=== PATIENT | female | born 1965 | race Caucasian/White ===

== ENCOUNTER 2018-06-07 17:16 | Inpatient (IN) | payer BC, OTHER ==
[~2018-06-07] VITALS: Ht 165.1 cm; Wt 83.2 kg
[2018-06-07] MEDS ORDERED: acetaminophen 325mg tablet PO STA (17:29)
[2018-06-07] MEDS ORDERED: normal saline 1000ML IV soln IV ONE (17:30)
[2018-06-07 18:11] LABS: BASOPHILS % (AUTO) 0.3 % (0-1); EOSINOPHILS # (AUTO) 0.2 X10'3 (0-0.9); EOSINOPHILS % (AUTO) 2.7 % (0-6); HEMATOCRIT 42.3 % (35.0-45.0); HEMOGLOBIN 14.7 g/dl (12.0-16.0); LYMPHOCYTES # (AUTO) 1.1 X10'3 (1.1-4.8); LYMPHOCYTES % (AUTO) 15.6 % (21-51); MEAN CORPUSCULAR HEMOGLOBIN 31.8 PG (27.0-31.0); MEAN CORPUSCULAR HGB CONC 34.6 % (33.0-36.5); MEAN CORPUSCULAR VOLUME 91.8 FL (78-98); MEAN PLATELET VOLUME 8.5 FL (7.4-10.4); MONOCYTES # (AUTO) 0.6 X10'3 (0-0.9); MONOCYTES % (AUTO) 7.6 % (2-12); NEUTROPHILS # (AUTO) 5.4 X10'3 (1.8-7.7); NEUTROPHILS % (AUTO) 73.8 % (42-75); PLATELET COUNT 258 X10'3 (140-440); RED BLOOD COUNT 4.61 X10'6 (4.20-5.60); RED CELL DISTRIBUTION WIDTH 13.2 % (11.5-14.5); WHITE BLOOD COUNT 7.3 X10'3 (4.5-11.0)
[2018-06-07] MEDS ORDERED: ipratropium/albuterol 3ml nebule NEB ONE (18:15)
[2018-06-07] MEDS ORDERED: LORazepam 2 mg/ml vial IV ONE ×3 (18:15→20:30)
[2018-06-07] MEDS ORDERED: albuterol 2.5 MG/3 ML nebule NEB ONE ×3 (18:15→20:05)
[2018-06-07] MEDS ORDERED: methylPREDNISolone sod succ 125mg/2ml vial IV ONE (18:15)
[2018-06-07 18:25] LABS: ALANINE AMINOTRANSFERASE 45 U/L (12-78); ALBUMIN 3.7 G/DL (3.4-5.0); ALKALINE PHOSPHATASE 87 IU/L (46-116); ANION GAP 13 (8-16); ASPARTATE AMINO TRANSFERASE 30 U/L (10-37); BILIRUBIN,TOTAL 0.5 MG/DL (0.1-1.0); BLOOD UREA NITROGEN 7 MG/DL (7-18); BUN/CREATININE RATIO 7.9 (6.6-38.0); CALCIUM 8.6 MG/DL (8.5-10.1); CHLORIDE 99 MMOL/L (99-107); CREATININE 0.89 MG/DL (0.40-0.90); GLUCOSE 99 MG/DL (70-104); POTASSIUM 3.3 MMOL/L (3.5-5.1); SODIUM 135 MMOL/L (135-145); TOTAL CARBON DIOXIDE 23.1 MMOL/L (24-32); TOTAL PROTEIN 7.5 G/DL (6.4-8.2); eGFR 66 ML/MIN
--- NOTE | 2018-06-07 18:27 | NUR ---
PT UP TO THE BR FOR UA AND EXTRA WARMED BLANKETS GIVEN TO THE PT.
[2018-06-07 18:46] LABS: CLARITY,URINE CLEAR (Clear); COLOR,URINE STRAW (Yellow); GLUCOSE, URINE NEGATIVE (Neg); KETONES,URINE NEGATIVE (Neg); LEUKOCYTE ESTERASE ,URINE NEGATIVE (Neg); NITRITES, URINE NEGATIVE (Neg); OCCULT BLOOD,URINE NEGATIVE (Neg); PH,URINE 6.5 (4.8-8.0); PROTEIN,URINE NEGATIVE (Neg); UROBILINOGEN,URINE 0.2 E.U/dL (0.2-1.0)
[2018-06-07 18:48] LABS: UA COLLECTION TYPE CLN CATCH MIDSTREAM
[2018-06-07] MEDS ORDERED: ipratropium 0.5 MG/2.5ML nebule IH ONE (19:35)
[2018-06-07] MEDS ORDERED: albuterol 2.5 mg/0.5ml nebule NEB ONE (19:35)
--- NOTE | 2018-06-07 19:42 | NUR ---
DRINKS 12-18 BEERS A DAY OR 3 BOTTLES OF WINE A DAY NO ALCOHOL SINCE 06-03-18
[2018-06-07] MEDS ORDERED: ipratropium/albuterol 3ml nebule IH ONE (20:05)
[2018-06-07] MEDS ORDERED: chlordiazePOXIDE 25mg capsule PO ONE (20:15)
[2018-06-07] MEDS ORDERED: magnesium 2GM in 50ml NS 50 ML IV ONE (20:30)
[2018-06-07] MEDS ORDERED: levalbuterol 1.25mg/0.5ml nebule IH ONE (20:40)
--- NOTE | 2018-06-07 20:55 | NUR ---
FAMILY AT THE BS. RT WITH PT
--- NOTE | 2018-06-07 20:55 | NUR ---
PT FALLING ASLEEP THROUGH HER NEB TREATMENT. HOLDING ATIVAN
--- NOTE | 2018-06-07 21:18 | NUR ---
pts family informed er md that pt had wet the bed. this rn went into pts room with a bedside commode, assisted her to commode, and changed/cleaned her bed. pt assisted back to bed, head of bed raised, and pt had no other requests at this time
[2018-06-07 21:35] LABS: URINE AMPHETAMINE SCREEN NEGATIVE (Neg); URINE BARBITUATE SCREEN NEGATIVE (Neg); URINE BENZODIAZEPINES SCREEN NEGATIVE (Neg); URINE CANNABINOID SCREEN NEGATIVE (Neg); URINE COCAINE SCREEN NEGATIVE (Neg); URINE METHADONE SCREEN NEGATIVE (Neg); URINE OPIATE SCREEN NEGATIVE (Neg); URINE PHENCYCLIDINE SCREEN NEGATIVE (Neg)
[2018-06-07 21:38] LABS: ETHANOL < 0.010 GM/DL (0.0-0.010)
[2018-06-07] MEDS ORDERED: thiamine inj. 100 MG in normal saline 100ml IV soln 100 ML IV ONE (22:15)
[2018-06-07] MEDS ORDERED: haloperidol lactate 5mg/ml inj IM PRN (22:15)
[2018-06-07] MEDS ORDERED: magnesium hydroxide 30ml (MOM) UD suspension PO PRN (22:15)
[2018-06-07] MEDS ORDERED: albuterol 2.5 MG/3 ML nebule NEB PRN (22:15)
[2018-06-07] MEDS ORDERED: haloperidol 5mg tablet PO PRN (22:15)
[2018-06-07] MEDS ORDERED: ondansetron/PF 4mg/2ml inj IV PRN (22:15)
[2018-06-07] MEDS ORDERED: potassium Cl 20 mEq SR tablet PO PRN ×2 (22:15)
[2018-06-07] MEDS ORDERED: mag hydrox/Alum hydrox/simeth 30ml oral suspension PO PRN (22:15)
[2018-06-07] MEDS ORDERED: acetaminophen 325mg tablet PO PRN (22:15)
[2018-06-07] MEDS ORDERED: potassium Cl 40MEQ/NS 500ml 500 ML IV PRN ×2 (22:15)
--- NOTE | 2018-06-07 22:18 | NUR ---
PT IS ASLEEP. SNORING RR, HOB IS ELEVATED TO 75 DEGREES. SON IN ROOM. HE CALLED ME IN TO STATE "SHE IS GOING TO BE MOVED TO ANOTHER ROOM, SHE IS STAYING. I DON'T MEAN TO COMPLAIN, BUT NO ONE HAS GIVEN HER WATER, AND I HAVE BEEN ON THE PHONE A SOLID HOUR AND NO ONE HAS CHECKED ON HER IN THIS TIME. MY GRANDMOTHER TELLS ME NOT TO LEAVE BECAUSE PEOPLE ALL THE TIME IN THE HOSPITAL. SO I WANT TO STAY THE NIGHT."
--- NOTE | 2018-06-07 23:05 | NUR ---
Received report from CINTHYA Wagner. Awaiting patient arrival to the floor.
--- NOTE | 2018-06-07 23:15 | NUR ---
Patient arrived to the floor via gurney. Placed in room 355B. Patient is very sleepy, but alert and oriented of room air. In no apparent distress. Call light and items of frequent use within reach. Will continue to monitor.
[2018-06-07 23:20] VITALS: BP 140/68
[2018-06-07] MEDS: normal saline 1000ml 1,000 ML IV SCH (23:28)
--- NOTE | 2018-06-07 23:45 | NUR ---
Attempted to DART patient; patient verbalized "I'm very sleepy and tired. Can I just get some sleep now?" Assured patient that she is free to rest. Will attempt again later.
--- NOTE | 2018-06-08 04:30 | NUR ---
DART is partially complete. Patient kept falling asleep in between, could not finish sentences or answering questions. Patient again said she'd like to sleep.
[2018-06-08 05:17] LABS: BASOPHILS % (AUTO) 0.2 % (0-1); EOSINOPHILS # (AUTO) 0.1 X10'3 (0-0.9); HEMATOCRIT 38.6 % (35.0-45.0); HEMOGLOBIN 13.3 g/dl (12.0-16.0); LYMPHOCYTES # (AUTO) 0.5 X10'3 (1.1-4.8); LYMPHOCYTES % (AUTO) 7.9 % (21-51); MEAN CORPUSCULAR HEMOGLOBIN 31.8 PG (27.0-31.0); MEAN CORPUSCULAR HGB CONC 34.4 % (33.0-36.5); MEAN CORPUSCULAR VOLUME 92.5 FL (78-98); MEAN PLATELET VOLUME 8.8 FL (7.4-10.4); MONOCYTES # (AUTO) 0.1 X10'3 (0-0.9); MONOCYTES % (AUTO) 1.6 % (2-12); NEUTROPHILS # (AUTO) 5.6 X10'3 (1.8-7.7); NEUTROPHILS % (AUTO) 89.3 % (42-75); PLATELET COUNT 235 X10'3 (140-440); RED BLOOD COUNT 4.17 X10'6 (4.20-5.60); RED CELL DISTRIBUTION WIDTH 13.4 % (11.5-14.5); WHITE BLOOD COUNT 6.3 X10'3 (4.5-11.0)
[2018-06-08 05:38] LABS: ALBUMIN 3.1 G/DL (3.4-5.0); ANION GAP 9 (8-16); BLOOD UREA NITROGEN 7 MG/DL (7-18); BUN/CREATININE RATIO 9.5 (6.6-38.0); CHLORIDE 109 MMOL/L (99-107); CREATININE 0.74 MG/DL (0.40-0.90); GLUCOSE 156 MG/DL (70-104); POTASSIUM 3.9 MMOL/L (3.5-5.1); SODIUM 141 MMOL/L (135-145); TOTAL CARBON DIOXIDE 23.2 MMOL/L (24-32); eGFR 82 ML/MIN
--- NOTE | 2018-06-08 06:31 | NUR ---
Problems reprioritized. Patient report given, questions answered & plan of care reviewed with CINTHYA Hyatt.
--- NOTE | 2018-06-08 06:56 | NUR ---
Patient in room [facility] 355. I have received report from CINTHYA SOTO and had the opportunity to ask questions and assume patient care.
[2018-06-08 07:33] VITALS: BP 122/77
[2018-06-08] MEDS: K and/or MAG REPLACEMENT MC SCH (08:00)
[2018-06-08] MEDS ORDERED: NO HOME MEDS (08:17)
[2018-06-08] MEDS: acetaminophen 325mg tablet PO PRN (08:22)
[2018-06-08] MEDS: thiamine 100mg tablet PO SCH (08:22)
[2018-06-08] MEDS: enoxaparin 40mg/0.4ml syringe SUBCUT SCH (08:24)
[2018-06-08] MEDS: normal saline 1000ml 1,000 ML IV SCH ×2 (08:24→18:13)
[2018-06-08] MEDS ORDERED: predniSONE 20 mg tablet PO SCH (08:30)
[2018-06-08] MEDS: piperacillin/tazo 3.375gm/50ml 50 ML IV SCH ×3 (11:26→23:51)
[2018-06-08] MEDS: LORazepam 2 mg/ml vial IV PRN ×2 (14:55→16:50)
[2018-06-08] MEDS: ipratropium/albuterol 3ml nebule NEB SCH ×3 (15:06→20:29)
--- NOTE | 2018-06-08 18:18 | NUR ---
Received report from CINTHYA Hyatt. Patient is awake and alert on room air, in no apparent distress. Sitting up in bed having meal. Visitors at bedside. Call light and items of frequent use within reach. Will continue to monitor.
--- NOTE | 2018-06-08 18:31 | NUR ---
Problems reprioritized. Patient report given, questions answered & plan of care reviewed with CINTHYA SOTO.
[2018-06-08 20:00] VITALS: BP 136/70
[2018-06-08] MEDS: methylPREDNISolone sod succ 125mg/2ml vial IV SCH (23:50)
[2018-06-09] VITALS: BP 110/64
[2018-06-09] MEDS: normal saline 1000ml 1,000 ML IV SCH ×3 (01:29→23:51)
[2018-06-09] MEDS: LORazepam 2 mg/ml vial IV PRN ×6 (02:49→23:50)
[2018-06-09 06:07] LABS: BASOPHILS % (AUTO) 0.1 % (0-1); EOSINOPHILS # (AUTO) 0.1 X10'3 (0-0.9); HEMATOCRIT 38.3 % (35.0-45.0); LYMPHOCYTES # (AUTO) 0.9 X10'3 (1.1-4.8); LYMPHOCYTES % (AUTO) 7.7 % (21-51); MEAN CORPUSCULAR HEMOGLOBIN 31.7 PG (27.0-31.0); MEAN CORPUSCULAR VOLUME 93.2 FL (78-98); MEAN PLATELET VOLUME 8.8 FL (7.4-10.4); MONOCYTES # (AUTO) 0.2 X10'3 (0-0.9); MONOCYTES % (AUTO) 1.7 % (2-12); NEUTROPHILS # (AUTO) 10.1 X10'3 (1.8-7.7); NEUTROPHILS % (AUTO) 89.5 % (42-75); PLATELET COUNT 264 X10'3 (140-440); RED BLOOD COUNT 4.11 X10'6 (4.20-5.60); RED CELL DISTRIBUTION WIDTH 13.6 % (11.5-14.5); WHITE BLOOD COUNT 11.3 X10'3 (4.5-11.0)
[2018-06-09 06:10] LABS: ALBUMIN 3.1 G/DL (3.4-5.0); ANION GAP 11 (8-16); BLOOD UREA NITROGEN 11 MG/DL (7-18); BUN/CREATININE RATIO 13.4 (6.6-38.0); CALCIUM 8.5 MG/DL (8.5-10.1); CHLORIDE 107 MMOL/L (99-107); CREATININE 0.82 MG/DL (0.40-0.90); GLUCOSE 172 MG/DL (70-104); POTASSIUM 4.5 MMOL/L (3.5-5.1); SODIUM 140 MMOL/L (135-145); TOTAL CARBON DIOXIDE 22.5 MMOL/L (24-32); eGFR 73 ML/MIN
--- NOTE | 2018-06-09 06:10 | NUR ---
Problems reprioritized. Patient report given, questions answered & plan of care reviewed with CINTHYA Hyatt. Patient resting comfortably.
--- NOTE | 2018-06-09 06:19 | NUR ---
Patient in room [facility] 355. I have received report from CINTHYA SOTO and had the opportunity to ask questions and assume patient care.
[2018-06-09 07:00] VITALS: BP 123/79
[2018-06-09] MEDS: thiamine 100mg tablet PO SCH (07:21)
[2018-06-09] MEDS: methylPREDNISolone sod succ 125mg/2ml vial IV SCH ×4 (07:21→23:49)
[2018-06-09] MEDS: piperacillin/tazo 3.375gm/50ml 50 ML IV SCH ×3 (07:21→23:49)
[2018-06-09] MEDS: enoxaparin 40mg/0.4ml syringe SUBCUT SCH (07:23)
[2018-06-09] MEDS: K and/or MAG REPLACEMENT MC SCH (08:00)
[2018-06-09] MEDS: ipratropium/albuterol 3ml nebule NEB SCH ×3 (09:00→22:13)
[2018-06-09] MEDS: nicotine 21mg patch - 24 hr TD SCH (09:19)
[2018-06-09] MEDS: acetaminophen 325mg tablet PO PRN ×2 (09:24→17:25)
[2018-06-09 12:00] VITALS: BP 124/66
--- NOTE | 2018-06-09 16:27 | NUR ---
SS consulted w/hospitalist-Dr. Tyler re pt's need for psych medication eval due to presence of depressive symptoms. Per consultation, doctor in agreement that an eval would be helpful in determining if antidepressant treatment is warranted. SS contacted [facility] and requested for a psych consult on pt's behalf, per discussion w/[facility], they will ask one of their physician to stop by either this evening or tomorrow morning to see pt. RN & hospitalist informed.
[2018-06-09 18:00] VITALS: BP 137/75
--- NOTE | 2018-06-09 18:19 | NUR ---
Problems reprioritized. Patient report given, questions answered & plan of care reviewed with CINTHYA PHELPS. Addendum: 06/09/18 at 1847 by Olena Nance RN Problems reprioritized. Patient report given, questions answered & plan of care reviewed with CINTHYA Mendiola.
--- NOTE | 2018-06-09 18:47 | NUR ---
Patient in room [facility] 355. I have received report from Olena MENDES and had the opportunity to ask questions and assume patient care.
[2018-06-09] MEDS ORDERED: benzocaine/menthol oral lozeng 1 EACH BOX MM PRN (19:35)
[2018-06-09 21:00] VITALS: BP 141/80
[2018-06-09] MEDS: prazosin 1mg capsule PO SCH (21:23)
[2018-06-09] MEDS ORDERED: LORazepam 1 MG tablet PO PRN (22:15)
[2018-06-09] MEDS: benzonatate 100mg capsule PO SCH ×2 (23:50→23:58)
[2018-06-10] VITALS: BP 111/72
[2018-06-10 05:18] LABS: BASOPHILS % (AUTO) 0 % (0-1); EOSINOPHILS # (AUTO) 0.3 X10'3 (0-0.9); EOSINOPHILS % (AUTO) 2.2 % (0-6); HEMATOCRIT 39.4 % (35.0-45.0); HEMOGLOBIN 13.4 g/dl (12.0-16.0); LYMPHOCYTES % (AUTO) 6.6 % (21-51); MEAN CORPUSCULAR HEMOGLOBIN 31.8 PG (27.0-31.0); MEAN CORPUSCULAR VOLUME 93.6 FL (78-98); MONOCYTES # (AUTO) 0.3 X10'3 (0-0.9); MONOCYTES % (AUTO) 2.2 % (2-12); NEUTROPHILS # (AUTO) 13.1 X10'3 (1.8-7.7); PLATELET COUNT 287 X10'3 (140-440); RED BLOOD COUNT 4.21 X10'6 (4.20-5.60); RED CELL DISTRIBUTION WIDTH 13.6 % (11.5-14.5); WHITE BLOOD COUNT 14.8 X10'3 (4.5-11.0)
[2018-06-10] MEDS: acetaminophen 325mg tablet PO PRN ×3 (05:22→20:38)
[2018-06-10] MEDS: LORazepam 2 mg/ml vial IV PRN ×4 (05:23→20:37)
[2018-06-10 05:27] LABS: ALBUMIN 3.2 G/DL (3.4-5.0); ANION GAP 10 (8-16); BLOOD UREA NITROGEN 11 MG/DL (7-18); BUN/CREATININE RATIO 12.8 (6.6-38.0); CALCIUM 8.9 MG/DL (8.5-10.1); CHLORIDE 107 MMOL/L (99-107); CREATININE 0.86 MG/DL (0.40-0.90); GLUCOSE 155 MG/DL (70-104); POTASSIUM 4.3 MMOL/L (3.5-5.1); SODIUM 142 MMOL/L (135-145); TOTAL CARBON DIOXIDE 25.4 MMOL/L (24-32); eGFR 69 ML/MIN
--- NOTE | 2018-06-10 06:27 | NUR ---
Patient in room [facility] 355. I have received report from CINTHYA Baeza and had the opportunity to ask questions and assume patient care.
--- NOTE | 2018-06-10 06:29 | NUR ---
Problems reprioritized. Patient report given, questions answered & plan of care reviewed with Ana MENDES.
[2018-06-10 07:17] VITALS: BP 100/62
[2018-06-10] MEDS: ipratropium/albuterol 3ml nebule NEB SCH ×3 (07:41→21:05)
[2018-06-10] MEDS: K and/or MAG REPLACEMENT MC SCH (08:00)
[2018-06-10] MEDS: piperacillin/tazo 3.375gm/50ml 50 ML IV SCH ×2 (08:02→16:16)
[2018-06-10] MEDS: nicotine 21mg patch - 24 hr TD SCH ×2 (08:02→13:34)
[2018-06-10] MEDS: thiamine 100mg tablet PO SCH (08:02)
[2018-06-10] MEDS: benzonatate 100mg capsule PO SCH ×2 (08:02→16:16)
[2018-06-10] MEDS: enoxaparin 40mg/0.4ml syringe SUBCUT SCH (08:03)
[2018-06-10] MEDS: methylPREDNISolone sod succ 125mg/2ml vial IV SCH ×2 (08:03→16:16)
[2018-06-10] MEDS: normal saline 1000ml 1,000 ML IV SCH ×2 (10:13→20:37)
[2018-06-10 11:33] VITALS: BP 109/53
[2018-06-10] MEDS ORDERED: BENZ-16 PO (15:05)
[2018-06-10] MEDS ORDERED: NICO-687 TD (15:05)
[2018-06-10] MEDS ORDERED: thiamine tablet PO (15:05)
[2018-06-10] MEDS ORDERED: FOLI1TAB16 PO (15:05)
[2018-06-10] MEDS ORDERED: PRAZ1CAP5 PO (15:05)
[2018-06-10] MEDS ORDERED: AMOX-419 PO (15:05)
[2018-06-10] MEDS ORDERED: BUDE10.22 INH (15:05)
[2018-06-10] MEDS ORDERED: PRED20TA PO (15:05)
[2018-06-10] MEDS ORDERED: BENZ1LOZ30 MM (15:05)
[2018-06-10] MEDS ORDERED: ALBU8.5H8 IH (15:05)
[2018-06-10] MEDS ORDERED: DULO20CA50 PO (15:11)
[2018-06-10] MEDS ORDERED: HYDR-3686 PO (15:11)
[2018-06-10 19:00] VITALS: BP 112/61
--- NOTE | 2018-06-10 19:04 | NUR ---
Problems reprioritized. Patient report given, questions answered & plan of care reviewed with CINTHYA Mcmillan.
[2018-06-10] MEDS: prazosin 1mg capsule PO SCH (20:42)
[2018-06-11] VITALS: BP 118/70
[2018-06-11] MEDS: piperacillin/tazo 3.375gm/50ml 50 ML IV SCH ×2 (00:14→09:12)
[2018-06-11] MEDS: methylPREDNISolone sod succ 125mg/2ml vial IV SCH ×2 (00:14→09:13)
[2018-06-11] MEDS: benzonatate 100mg capsule PO SCH ×2 (00:14→09:12)
[2018-06-11] MEDS: LORazepam 2 mg/ml vial IV PRN ×2 (00:19→05:20)
[2018-06-11 06:06] LABS: BASOPHILS % (AUTO) 0 % (0-1); EOSINOPHILS # (AUTO) 0.3 X10'3 (0-0.9); EOSINOPHILS % (AUTO) 2.2 % (0-6); HEMATOCRIT 38.3 % (35.0-45.0); LYMPHOCYTES % (AUTO) 7.1 % (21-51); MEAN CORPUSCULAR HEMOGLOBIN 31.6 PG (27.0-31.0); MEAN CORPUSCULAR HGB CONC 33.9 % (33.0-36.5); MEAN CORPUSCULAR VOLUME 93.1 FL (78-98); MONOCYTES # (AUTO) 0.4 X10'3 (0-0.9); NEUTROPHILS # (AUTO) 12.5 X10'3 (1.8-7.7); NEUTROPHILS % (AUTO) 87.7 % (42-75); PLATELET COUNT 294 X10'3 (140-440); RED BLOOD COUNT 4.11 X10'6 (4.20-5.60); RED CELL DISTRIBUTION WIDTH 13.5 % (11.5-14.5); WHITE BLOOD COUNT 14.3 X10'3 (4.5-11.0)
[2018-06-11] MEDS: normal saline 1000ml 1,000 ML IV SCH (06:13)
--- NOTE | 2018-06-11 06:21 | NUR ---
Patient in room [facility] 355. I have received report from CINTHYA Mcmillan and had the opportunity to ask questions and assume patient care.
[2018-06-11 06:33] LABS: ALBUMIN 3.1 G/DL (3.4-5.0); ANION GAP 9 (8-16); BLOOD UREA NITROGEN 15 MG/DL (7-18); BUN/CREATININE RATIO 16.9 (6.6-38.0); CALCIUM 8.9 MG/DL (8.5-10.1); CHLORIDE 105 MMOL/L (99-107); CREATININE 0.89 MG/DL (0.40-0.90); GLUCOSE 164 MG/DL (70-104); POTASSIUM 4.4 MMOL/L (3.5-5.1); SODIUM 138 MMOL/L (135-145); TOTAL CARBON DIOXIDE 23.6 MMOL/L (24-32); eGFR 66 ML/MIN
[2018-06-11 07:27] VITALS: BP 148/92
[2018-06-11] MEDS: K and/or MAG REPLACEMENT MC SCH (08:00)
[2018-06-11] MEDS: ipratropium/albuterol 3ml nebule NEB SCH (08:38)
[2018-06-11] MEDS: thiamine 100mg tablet PO SCH (09:12)
[2018-06-11] MEDS: enoxaparin 40mg/0.4ml syringe SUBCUT SCH (09:13)
[2018-06-11] MEDS: acetaminophen 325mg tablet PO PRN (09:13)
[2018-06-11] MEDS: nicotine 21mg patch - 24 hr TD SCH (09:14)
--- NOTE | 2018-06-11 10:01 | NUR ---
Initial: Pt admitted with possible PNA and COPD exacerbation. Per MD progress notes PNA much improved and COPD exacerbation slowly resolving. Pt with hx of Etoh abuse however recently quid per H&P, pt receiving Thiamine. Pt on a regular diet with documented PO intake 100% meeting nutrient needs. LBM 06/07, pt with MoM PRN last given 06/10. Will continue to follow. Recommendations: 1) Continue with regular diet 2) Continue with Thiamine given hx etoh abuse 3) Monitor need for additional bowel care 4) Wt per rx Addendum: 06/11/18 at [address] Amended: Links added.
[2018-06-11 11:47] VITALS: BP 95/49
--- NOTE | 2018-06-11 14:07 | NUR ---
Pt discharged to home with all belongings in private vehicle, accompanied by son. Discharge instructions reviewed, medications reviewed, delivered by [facility]. IV DC'd, cannula intact. Pt instructed to follow up with PCP and get a referral for psychiatrist. Pt escorted to front lobby via wheelchair by PCT.
[2018-06-11] MEDS ORDERED: LORazepam 1 MG tablet PO PRN (22:15)
[2018-06-11] MEDS ORDERED: LORazepam 2 mg/ml vial IV PRN (22:15)
== END 2018-06-11 14:07 | disposition home health service (06) | DRG 178 ==
LOC: ER 17:17 → ED HOLD 22:13 → SUR 3N 23:15
PROVIDERS: ADMIT Hospitalist; ATTEND Family Medicine
DX: J69.0 Pneumonitis due to inhalation of food and vomit (principal); J45.901 Unspecified asthma with (acute) exacerbation; J44.1 Chronic obstructive pulmonary disease with (acute) exacerbation; F10.239 Alcohol dependence with withdrawal, unspecified; R45.851 Suicidal ideations; F33.2 Major depressive disorder, recurrent severe without psychotic features; F43.10 Post-traumatic stress disorder, unspecified; E66.9 Obesity, unspecified; E87.6 Hypokalemia; Z60.2 Problems related to living alone; F17.209 Nicotine dependence, unspecified, with unspecified nicotine-induced disorders; I10 Essential (primary) hypertension; J06.9 Acute upper respiratory infection, unspecified; A08.4 Viral intestinal infection, unspecified; R49.0 Dysphonia; Z79.899 Other long term (current) drug therapy; Z88.6 Allergy status to analgesic agent; Z68.30 Body mass index [BMI] 30.0-30.9, adult; Z71.6 Tobacco abuse counseling; Z85.07 Personal history of malignant neoplasm of pancreas; Z97.0 Presence of artificial eye; Z90.49 Acquired absence of other specified parts of digestive tract; Z98.51 Tubal ligation status
CPT/HCPCS: 36415; 71045; 80048; 80053; 80305; 80320; 81003; 83605; 83735; 84145; 85025; 87040; 87070; 87502; 87503; 93005; 94640; 94760; 97110; 97116; 97161; 97530; G0378; J1650; J2060; J2405; J2543; J2930; J3411; J3475; J7030; J7512; J7611; J7614

== ENCOUNTER 2020-01-25 12:58 | Emergency (ER) | payer BC, MEDICAID ==
[~2020-01-25] VITALS: Ht 162.6 cm; Wt 83.0 kg
[~2020-01-25 12:58] MED LIST: ALBU8.5H8 IH; BENZ-16 PO; BENZ1LOZ30 MM; BUDE10.22 INH; DULO20CA50 PO; FOLI1TAB16 PO; NICO-687 TD; PRAZ1CAP5 PO; thiamine tablet PO
[2020-01-25 14:33] LABS: BASOPHILS % (AUTO) 0.3 % (0-1); EOSINOPHILS # (AUTO) 0.7 X10'3 (0-0.9); HEMATOCRIT 47.9 % (35.0-45.0); HEMOGLOBIN 16.3 g/dl (12.0-16.0); LYMPHOCYTES # (AUTO) 2.7 X10'3 (1.1-4.8); LYMPHOCYTES % (AUTO) 26.3 % (21-51); MEAN CORPUSCULAR HEMOGLOBIN 31.6 PG (27.0-31.0); MEAN PLATELET VOLUME 8.8 FL (7.4-10.4); MONOCYTES # (AUTO) 0.6 X10'3 (0-0.9); MONOCYTES % (AUTO) 5.7 % (2-12); NEUTROPHILS # (AUTO) 6.2 X10'3 (1.8-7.7); NEUTROPHILS % (AUTO) 60.7 % (42-75); PLATELET COUNT 343 X10'3 (140-440); RED BLOOD COUNT 5.15 X10'6 (4.20-5.60); RED CELL DISTRIBUTION WIDTH 12.2 % (11.5-14.5); WHITE BLOOD COUNT 10.2 X10'3 (4.5-11.0)
[2020-01-25] MEDS ORDERED: iohexol 300mg/ml 100ml inj. ONE (14:40)
[2020-01-25 14:45] LABS: ALBUMIN 4.1 G/DL (3.4-5.0); ANION GAP 8 (8-16); BLOOD UREA NITROGEN 7 MG/DL (7-18); BUN/CREATININE RATIO 8.2 (6.6-38.0); CALCIUM 9.8 MG/DL (8.5-10.1); CHLORIDE 104 MMOL/L (99-107); CREATININE 0.85 MG/DL (0.40-0.90); GLUCOSE 91 MG/DL (70-104); POTASSIUM 3.7 MMOL/L (3.5-5.1); SODIUM 139 MMOL/L (135-145); TOTAL CARBON DIOXIDE 26.7 MMOL/L (24-32); eGFR 69 ML/MIN
[2020-01-25] MEDS ORDERED: amox tr/potassium clavulanate 875/125mg TAB PO ONE (15:40)
[2020-01-25] MEDS ORDERED: AMOX-422 PO (16:09)
[2020-01-25] MEDS ORDERED: ERYT1OIN6 LEFTEYE (16:09)
[2020-01-25 16:25] VITALS: BP 137/85
== END 2020-01-25 16:30 | disposition home or self-care (01) ==
LOC: ER 13:00
DX: H00.034 Abscess of left upper eyelid (principal); I10 Essential (primary) hypertension; Z90.49 Acquired absence of other specified parts of digestive tract; Z98.51 Tubal ligation status; Z72.89 Other problems related to lifestyle; Z60.2 Problems related to living alone; Z88.5 Allergy status to narcotic agent; Z88.8 Allergy status to other drugs, medicaments and biological substances; Z79.899 Other long term (current) drug therapy
CPT/HCPCS: 36415; 70482; 80048; 85025; 99285; Q9967

== ENCOUNTER → 2020-10-11 | Outpatient (CLI) | payer MEDICAID | END | disposition home or self-care (01) | LOC: RT 10:25 | PROVIDERS: ATTEND Family Medicine | DX: J44.9 Chronic obstructive pulmonary disease, unspecified (principal) | CPT/HCPCS: 94010 ==

== ENCOUNTER 2020-11-03 14:29 | Emergency (ER) | payer MEDICAID ==
[~2020-11-03] VITALS: Ht 167.6 cm; Wt 86.4 kg
[2020-11-03] MEDS ORDERED: morphine 4 MG/ML inj SYRINge IV ONE (14:50)
[2020-11-03] MEDS ORDERED: normal saline 1000ml 1,000 ML IV ONE (14:50)
--- NOTE | 2020-11-03 14:52 | NUR ---
LABS,[id number]
[2020-11-03 15:02] LABS: BASOPHILS # (AUTO) 0.1 X10'3 (0-0.2); BASOPHILS % (AUTO) 0.6 % (0-1); EOSINOPHILS # (AUTO) 0.1 X10'3 (0-0.9); EOSINOPHILS % (AUTO) 1.1 % (0-6); HEMATOCRIT 36.3 % (35.0-45.0); LYMPHOCYTES # (AUTO) 2.7 X10'3 (1.1-4.8); LYMPHOCYTES % (AUTO) 19.8 % (21-51); MEAN CORPUSCULAR HEMOGLOBIN 29.6 PG (27.0-31.0); MEAN CORPUSCULAR HGB CONC 33.2 g/dL (33.0-36.5); MEAN CORPUSCULAR VOLUME 89.3 FL (78-98); MEAN PLATELET VOLUME 8.4 FL (7.4-10.4); MONOCYTES # (AUTO) 0.8 X10'3 (0-0.9); MONOCYTES % (AUTO) 5.6 % (2-12); NEUTROPHILS % (AUTO) 72.9 % (42-75); PLATELET COUNT 243 X10'3 (140-440); RED BLOOD COUNT 4.06 X10'6 (4.20-5.60); RED CELL DISTRIBUTION WIDTH 14.4 % (11.5-14.5); WHITE BLOOD COUNT 13.7 X10'3 (4.5-11.0)
[2020-11-03] MEDS ORDERED: fentaNYL/PF 50MCG/1 ML 2ML syringe IV ONE (15:05)
[2020-11-03] MEDS: HYDROcodone/acetaminophen 5mg/325mg tablet PO ONE ×2 (15:14→16:31)
[2020-11-03 15:18] LABS: ALANINE AMINOTRANSFERASE 58 U/L (12-78); ALBUMIN 2.7 G/DL (3.4-5.0); ALBUMIN/GLOBULIN RATIO 0.9 (1.1-1.5); ALKALINE PHOSPHATASE 75 IU/L (46-116); ANION GAP 8 (8-16); ASPARTATE AMINO TRANSFERASE 66 U/L (10-37); BILIRUBIN,TOTAL 0.3 MG/DL (0.1-1.0); BLOOD UREA NITROGEN 12 MG/DL (7-18); BUN/CREATININE RATIO 14.1 (6.6-38.0); CALCIUM 7.5 MG/DL (8.5-10.1); CHLORIDE 105 MMOL/L (99-107); CREATININE 0.85 MG/DL (0.40-0.90); GLUCOSE 110 MG/DL (70-104); POTASSIUM 3.2 MMOL/L (3.5-5.1); SODIUM 136 MMOL/L (135-145); TOTAL PROTEIN 5.8 G/DL (6.4-8.2); TROPONIN I < 0.04 NG/ML (0.0-0.05); eGFR 69 ML/MIN
[2020-11-03] MEDS ORDERED: potassium Cl 20 mEq SR tablet PO STA (15:39)
[2020-11-03] MEDS ORDERED: POTASSIUM BICARB 20meq eff tab 20 MEQ TABLET.EFF PO STA (15:42)
[2020-11-03 15:55] LABS: MAGNESIUM 1.8 MG/DL (1.5-2.4)
[2020-11-03] MEDS ORDERED: ondansetron/PF 4mg/2ml inj IV ONE (15:55)
[2020-11-03] MEDS ORDERED: diphenhydrAMINE 50 mg/ml inj IV ONE (17:25)
[2020-11-03] MEDS ORDERED: proCHLORperazine 10 MG/2 ml inj IV ONE (17:25)
[2020-11-03] MEDS ORDERED: ketamine 10mg/ml 20ml inj 20 MG in normal saline 100ml IV soln 98 ML IV ONE (17:25)
[2020-11-03] MEDS ORDERED: ketorolac tromethamine 15mg/ml inj. IV ONE (18:20)
[2020-11-03] MEDS ORDERED: ketorolac trometh. 30mg/ml inj. IV ONE (18:40)
--- NOTE | 2020-11-03 19:40 | NUR ---
DR SCHNEIDER AT BEDSIDE SPEAKING TO PT AND HER , EXPLAINING PLAN OF CARE
[2020-11-03 20:40] VITALS: BP 121/70
--- NOTE | 2020-11-03 21:59 | NUR ---
PT ABLE TO WALK TO COMMODE, TOLERATED WELL
== END 2020-11-03 22:12 | disposition home or self-care (01) ==
LOC: ER 14:30
DX: G89.18 Other acute postprocedural pain (principal); R55 Syncope and collapse; R42 Dizziness and giddiness; E87.6 Hypokalemia; I10 Essential (primary) hypertension; Z87.01 Personal history of pneumonia (recurrent); Z90.49 Acquired absence of other specified parts of digestive tract; Z98.51 Tubal ligation status; Z72.89 Other problems related to lifestyle; Z60.2 Problems related to living alone; Z88.5 Allergy status to narcotic agent; Z79.899 Other long term (current) drug therapy; W19.XXXA Unspecified fall, initial encounter; Y93.89 Activity, other specified; Y92.89 Other specified places as the place of occurrence of the external cause; Y99.8 Other external cause status
CPT/HCPCS: 36415; 73030; 80053; 83735; 84484; 85025; 93005; 96361; 96374; 96375; 99285; J0780; J1200; J1885; J2405; J3010; J7030; 96365

== ENCOUNTER 2021-06-05 09:42 | Outpatient (CLI) | payer MEDICAID ==
[~2021-06-05 09:42] MED LIST changes: +ALBU8.5H17 IH; -ALBU8.5H8 IH; -FOLI1TAB16 PO; +FOLI1TAB27 PO
[2021-06-05 11:08] LABS: ALBUMIN 3.8 G/DL (3.4-5.0); ALKALINE PHOSPHATASE 90 IU/L (46-116); BASOPHILS # (AUTO) 0.1 X10'3 (0-0.2); BLOOD UREA NITROGEN 21 MG/DL (7-18); BUN/CREATININE RATIO 24.1 (6.6-38.0); CALCIUM 9.1 MG/DL (8.5-10.1); CHLORIDE 102 MMOL/L (99-107); CREATININE 0.87 MG/DL (0.40-0.90); EOSINOPHILS # (AUTO) 0.5 X10'3 (0-0.9); EOSINOPHILS % (AUTO) 5.3 % (0-6); LYMPHOCYTES # (AUTO) 2.7 X10'3 (1.1-4.8); LYMPHOCYTES % (AUTO) 27.8 % (21-51); MEAN CORPUSCULAR HEMOGLOBIN 30.9 PG (27.0-31.0); MEAN CORPUSCULAR HGB CONC 33.6 g/dL (33.0-36.5); MEAN CORPUSCULAR VOLUME 91.9 FL (78-98); MEAN PLATELET VOLUME 9.2 FL (7.4-10.4); MONOCYTES # (AUTO) 0.7 X10'3 (0-0.9); MONOCYTES % (AUTO) 6.9 % (2-12); NEUTROPHILS # (AUTO) 5.8 X10'3 (1.8-7.7); PRE OP ALT 35 U/L (30-65); PRE OP ANION GAP 9 (8-16); PRE OP AST 18 U/L (10-37); PRE OP BILIRUB, TOTAL 0.4 MG/DL (0.0-1.0); PRE OP GLUCOSE 104 MG/DL (70-104); PRE OP HEMATOCRIT 45.7 % (35.0-45.0); PRE OP HEMOGLOBIN 15.4 g/dL (12.0-16.0); PRE OP PLATELET COUNT 320 X10'3 (140-440); PRE OP SODIUM 137 MMOL/L (135-145); RED BLOOD COUNT 4.98 X10'6 (4.20-5.60); RED CELL DISTRIBUTION WIDTH 13.3 % (11.5-14.5); TOTAL CARBON DIOXIDE 25.8 MMOL/L (24-32); TOTAL PROTEIN 7.5 G/DL (6.4-8.2); eGFR 67 ML/MIN
[2021-06-05] MEDS ORDERED: CALCIUM (13:50)
[2021-06-05] MEDS ORDERED: VIT C (13:50)
[2021-06-05] MEDS ORDERED: VIT D3 (13:50)
[2021-06-05] MEDS ORDERED: ZINC (13:50)
[2021-06-05] MEDS ORDERED: vit b-12 (13:50)
[2021-06-05] MEDS ORDERED: AREDS (13:50)
[2021-06-05] MEDS ORDERED: MVI (13:50)
[2021-06-05] MEDS ORDERED: collagen (13:50)
== END 2021-06-05 23:59 | disposition home or self-care (01) ==
LOC: PRE-OP 09:42 → EDSTATUS 06-13 08:45
PROVIDERS: ATTEND Orthopaedic Surgery
DX: Z01.812 Encounter for preprocedural laboratory examination (principal); S06.9X1D Unspecified intracranial injury with loss of consciousness of 30 minutes or less, subsequent encounter; S46.011D Strain of muscle(s) and tendon(s) of the rotator cuff of right shoulder, subsequent encounter; S63.044D Dislocation of carpometacarpal joint of right thumb, subsequent encounter; M18.11 Unilateral primary osteoarthritis of first carpometacarpal joint, right hand; J44.9 Chronic obstructive pulmonary disease, unspecified; M54.2 Cervicalgia; F17.209 Nicotine dependence, unspecified, with unspecified nicotine-induced disorders; E66.8 Other obesity; M17.11 Unilateral primary osteoarthritis, right knee; M17.12 Unilateral primary osteoarthritis, left knee; X58.XXXD Exposure to other specified factors, subsequent encounter; Z97.0 Presence of artificial eye; Z87.898 Personal history of other specified conditions; Z20.822 Contact with and (suspected) exposure to COVID-19
CPT/HCPCS: 36415; 80053; 85025; 93005; U0003; U0005

== ENCOUNTER 2021-07-25 05:27 | Day surgery (SDC) | payer MEDICAID ==
[2021-07-18 14:17] LABS: BASOPHILS # (AUTO) 0.1 X10'3 (0-0.2); BASOPHILS % (AUTO) 0.9 % (0-1); EOSINOPHILS # (AUTO) 0.5 X10'3 (0-0.9); EOSINOPHILS % (AUTO) 5.2 % (0-6); LYMPHOCYTES # (AUTO) 2.8 X10'3 (1.1-4.8); LYMPHOCYTES % (AUTO) 29.7 % (21-51); MEAN CORPUSCULAR HEMOGLOBIN 30.7 PG (27.0-31.0); MEAN CORPUSCULAR HGB CONC 33.6 g/dL (33.0-36.5); MEAN CORPUSCULAR VOLUME 91.3 FL (78-98); MEAN PLATELET VOLUME 9.3 FL (7.4-10.4); MONOCYTES # (AUTO) 0.6 X10'3 (0-0.9); MONOCYTES % (AUTO) 6.4 % (2-12); NEUTROPHILS # (AUTO) 5.5 X10'3 (1.8-7.7); NEUTROPHILS % (AUTO) 57.8 % (42-75); PRE OP HEMATOCRIT 44.7 % (35.0-45.0); PRE OP PLATELET COUNT 310 X10'3 (140-440); RED CELL DISTRIBUTION WIDTH 12.9 % (11.5-14.5)
[2021-07-18 14:33] LABS: ALBUMIN 3.6 G/DL (3.4-5.0); ALBUMIN/GLOBULIN RATIO 0.9 (1.1-1.5); ALKALINE PHOSPHATASE 79 IU/L (46-116); BLOOD UREA NITROGEN 21 MG/DL (7-18); CALCIUM 9.4 MG/DL (8.5-10.1); CHLORIDE 106 MMOL/L (99-107); CREATININE 0.75 MG/DL (0.40-0.90); PRE OP ALT 29 U/L (30-65); PRE OP ANION GAP 7 (8-16); PRE OP AST 17 U/L (10-37); PRE OP BILIRUB, TOTAL 0.3 MG/DL (0.0-1.0); PRE OP GLUCOSE 107 MG/DL (70-104); PRE OP POTASSIUM 3.9 MMOL/L (3.4-5.1); PRE OP SODIUM 142 MMOL/L (135-145); TOTAL CARBON DIOXIDE 28.7 MMOL/L (24-32); TOTAL PROTEIN 7.5 G/DL (6.4-8.2); eGFR 80 ML/MIN
[2021-07-25] VITALS (11 sets, daily range): BP systolic 106–141; BP diastolic 73–89
[~2021-07-25] VITALS: Ht 162.6 cm; Wt 84.4 kg
[~2021-07-25 05:27] MED LIST changes: -ALBU8.5H17 IH; +AREDS; -BENZ-16 PO; -BENZ1LOZ30 MM; -BUDE10.22 INH; +CALCIUM PO; -DULO20CA50 PO; -FOLI1TAB27 PO; +MILK THISTLE; -NICO-687 TD; -PRAZ1CAP5 PO; +VIT C; +VIT D3; +ZINC PO; +ringers solution, lacted 1,000 ML IV SCH; -thiamine tablet PO; +vit b-12 PO
[2021-07-25] MEDS ORDERED: vancomycin 1,500 MG in NS 300ml IV soln IV ONE (05:30)
[2021-07-25] MEDS ORDERED: cefazolin/dext.iso 2gm/50ml IV ONE (05:30)
[2021-07-25] MEDS ORDERED: famotidine 20mg tablet PO ONE (05:30)
[2021-07-25] MEDS ORDERED: BUPIVAcaine 0.5% inj/PF 30 ML ONE (06:38)
[2021-07-25] MEDS ORDERED: midazolam 1 mg/ML 2ml injection ONE (07:18)
[2021-07-25] MEDS ORDERED: fentaNYL /PF 50mcg/ml 5ml ampule ONE (07:18)
[2021-07-25] MEDS ORDERED: propofol inj 20 ML IV ONE (07:34)
[2021-07-25] MEDS ORDERED: LIDOcaine 2% (20mg/ml) 5ml vial ONE (07:34)
[2021-07-25] MEDS ORDERED: dexamethasone sod phosphate 4mg/ml inj. ONE (07:34)
[2021-07-25] MEDS ORDERED: ondansetron/PF 4mg/2ml inj ONE (07:34)
[2021-07-25] MEDS ORDERED: ondansetron/PF 4mg/2ml inj IV PRN (08:20)
[2021-07-25] MEDS ORDERED: ringers solution, lacted 1,000 ML IV SCH (08:20)
[2021-07-25] MEDS ORDERED: HYDROmorphone/PF 0.2 MG/ML SYRINGE IV PRN ×2 (08:20)
[2021-07-25] MEDS ORDERED: fentaNYL/PF 50MCG/1 ML 2ML syringe IV PRN ×2 (08:20)
--- NOTE | 2021-07-25 09:32 | NUR ---
Received from OR via , accompanied by Anesthesiologist DR CORTES and report given by Anesthesiolgist. AWAKENS TO VOICE. VITALS STABLE. DRESSING/CAST DI. FINGERS WARM AND PINK. ISAI PAIN. RUE IN A SIMPLE SLING.
[2021-07-25] MEDS ORDERED: acetaminophen 1,000mg/100ml IV 100 ML IV ONE (09:55)
[2021-07-25] MEDS ORDERED: ketorolac trometh. 30mg/ml inj. IV ONE (09:55)
--- NOTE | 2021-07-25 11:12 | NUR ---
AWAKE AND ORIENTED. VITALS STABLE. DRESSING DI. STATES PAIN IMPROVING. HOME WITH A FRIEND AT THIS TIME.
== END 2021-07-25 11:12 | disposition home or self-care (01) ==
LOC: PAS 05:27
PROVIDERS: ATTEND Orthopaedic Surgery
DX: M18.11 Unilateral primary osteoarthritis of first carpometacarpal joint, right hand (principal); M25.331 Other instability, right wrist; S63.041A Subluxation of carpometacarpal joint of right thumb, initial encounter; M19.011 Primary osteoarthritis, right shoulder; J44.9 Chronic obstructive pulmonary disease, unspecified; E66.8 Other obesity; Z68.30 Body mass index [BMI] 30.0-30.9, adult; M17.0 Bilateral primary osteoarthritis of knee; K21.9 Gastro-esophageal reflux disease without esophagitis; F17.210 Nicotine dependence, cigarettes, uncomplicated; Z90.49 Acquired absence of other specified parts of digestive tract; Z20.822 Contact with and (suspected) exposure to COVID-19; Z88.5 Allergy status to narcotic agent; Z88.8 Allergy status to other drugs, medicaments and biological substances; Z79.899 Other long term (current) drug therapy; Z98.890 Other specified postprocedural states; Z98.51 Tubal ligation status; X58.XXXA Exposure to other specified factors, initial encounter; Y93.89 Activity, other specified; Y92.89 Other specified places as the place of occurrence of the external cause; Y99.8 Other external cause status
CPT/HCPCS: 25310; 25447; 36415; 80053; 82948; 85025; A6222; C1713; J0131; J1100; J1170; J1885; J2250; J2405; J2704; J3010; J3370; J3490; J7030; J7040; J7120; S0020; U0003; U0005; Z7506; Z7508; Z7512; A4565; A4618; A6449; A7000

== ENCOUNTER 2022-05-24 11:54 | Emergency (ER) | payer MEDICAID ==
[~2022-05-24] VITALS: Ht 162.6 cm; Wt 89.5 kg
[~2022-05-24 11:54] MED LIST changes: -ringers solution, lacted 1,000 ML IV SCH
[2022-05-24] MEDS ORDERED: MULT-1173 (12:17)
[2022-05-24] MEDS ORDERED: normal saline 1000ML IV soln IV ONE (12:40)
[2022-05-24] MEDS ORDERED: ipratropium/albuterol 3ml nebule NEB ONE (12:40)
[2022-05-24] MEDS ORDERED: albuterol 2.5 MG/3 ML nebule NEB ONE (12:40)
--- NOTE | 2022-05-24 12:50 | NUR ---
Pt with wheezy upon auscultation. Spo2 and RR WNL on RA. Nebulizer treatments ordered. RN paged RT @ 1856.
[2022-05-24 13:11] LABS: BASOPHILS % (AUTO) 0.8 % (0-1); EOSINOPHILS # (AUTO) 0.2 X10'3 (0-0.9); EOSINOPHILS % (AUTO) 3.7 % (0-6); HEMATOCRIT 44.9 % (35.0-45.0); HEMOGLOBIN 14.9 g/dl (12.0-16.0); LYMPHOCYTES # (AUTO) 1.8 X10'3 (1.1-4.8); MEAN CORPUSCULAR HEMOGLOBIN 29.5 PG (27.0-31.0); MEAN CORPUSCULAR HGB CONC 33.3 g/dL (33.0-36.5); MEAN CORPUSCULAR VOLUME 88.7 FL (78-98); MEAN PLATELET VOLUME 8.7 FL (7.4-10.4); MONOCYTES # (AUTO) 0.6 X10'3 (0-0.9); MONOCYTES % (AUTO) 10.7 % (2-12); NEUTROPHILS # (AUTO) 3.2 X10'3 (1.8-7.7); NEUTROPHILS % (AUTO) 53.8 % (42-75); PLATELET COUNT 209 X10'3 (140-440); RED BLOOD COUNT 5.07 X10'6 (4.20-5.60); RED CELL DISTRIBUTION WIDTH 13.4 % (11.5-14.5); WHITE BLOOD COUNT 5.9 X10'3 (4.5-11.0)
[2022-05-24 13:26] LABS: ALANINE AMINOTRANSFERASE 35 U/L (12-78); ALBUMIN 3.4 G/DL (3.4-5.0); ALBUMIN/GLOBULIN RATIO 0.9 (1.1-1.5); ALKALINE PHOSPHATASE 86 IU/L (46-116); ANION GAP 9 (8-16); ASPARTATE AMINO TRANSFERASE 33 U/L (10-37); BILIRUBIN,TOTAL 0.2 MG/DL (0.1-1.0); BLOOD UREA NITROGEN 14 MG/DL (7-18); BUN/CREATININE RATIO 17.5 (6.6-38.0); CALCIUM 8.8 MG/DL (8.5-10.1); CHLORIDE 101 MMOL/L (99-107); GLUCOSE 122 MG/DL (70-104); MAGNESIUM 2.2 MG/DL (1.5-2.4); POTASSIUM 3.7 MMOL/L (3.5-5.1); SODIUM 134 MMOL/L (135-145); TOTAL CARBON DIOXIDE 24.1 MMOL/L (24-32); TOTAL PROTEIN 7.1 G/DL (6.4-8.2); eGFR 74 ML/MIN
[2022-05-24 14:14] LABS: CLARITY,URINE CLEAR (Clear); COLOR,URINE YELLOW (Yellow); GLUCOSE, URINE NEGATIVE (Neg); KETONES,URINE NEGATIVE (Neg); LEUKOCYTE ESTERASE ,URINE NEGATIVE (Neg); NITRITES, URINE NEGATIVE (Neg); OCCULT BLOOD,URINE NEGATIVE (Neg); PROTEIN,URINE NEGATIVE (Neg); UROBILINOGEN,URINE 0.2 E.U/dL (0.2-1.0)
[2022-05-24 14:18] LABS: UA COLLECTION TYPE CLN CATCH MIDSTREAM
[2022-05-24] MEDS ORDERED: AZIT250T PO (14:57)
[2022-05-24] MEDS ORDERED: ALBU8HFA PO (14:57)
[2022-05-24] MEDS ORDERED: BUDE180A INH (14:57)
[2022-05-24] MEDS ORDERED: PRED20TA PO (14:57)
[2022-05-24] MEDS ORDERED: predniSONE 20 mg tablet PO ONE (15:10)
[2022-05-24 15:26] VITALS: BP 110/74
--- NOTE | 2022-05-24 15:26 | NUR ---
Per RO Enrique to do 1 out of 2 IVF bolus. Also, per MD STARR to not do 2nd blood culture, as temperature is 98.7. Pt ready to DC.
== END 2022-05-24 15:58 | disposition home or self-care (01) ==
LOC: ER 11:55
DX: J45.21 Mild intermittent asthma with (acute) exacerbation (principal); B34.9 Viral infection, unspecified; I10 Essential (primary) hypertension; Z90.49 Acquired absence of other specified parts of digestive tract; Z98.890 Other specified postprocedural states; Z88.5 Allergy status to narcotic agent; Z88.8 Allergy status to other drugs, medicaments and biological substances; Z79.899 Other long term (current) drug therapy; Z79.1 Long term (current) use of non-steroidal anti-inflammatories (NSAID)
CPT/HCPCS: 36415; 71045; 80053; 81003; 83605; 83735; 84145; 85025; 87040; 87502; 87503; 93005; 94640; 96361; 96374; 99285; J7030; J7512; 94760

== ENCOUNTER 2022-09-29 05:35 | Inpatient (IN) | payer MEDICAID ==
[2022-09-24 15:47] LABS: CLARITY,URINE CLEAR (Clear); COLOR,URINE YELLOW (Yellow); GLUCOSE, URINE NEGATIVE (Neg); KETONES,URINE NEGATIVE (Neg); LEUKOCYTE ESTERASE ,URINE NEGATIVE (Neg); NITRITES, URINE NEGATIVE (Neg); OCCULT BLOOD,URINE NEGATIVE (Neg); PROTEIN,URINE NEGATIVE (Neg); UROBILINOGEN,URINE 0.2 E.U/dL (0.2-1.0)
[2022-09-24 15:49] LABS: UA COLLECTION TYPE CLN CATCH MIDSTREAM
[2022-09-24 15:52] LABS: BASOPHILS # (AUTO) 0.1 X10'3 (0-0.2); BASOPHILS % (AUTO) 0.8 % (0-1); EOSINOPHILS # (AUTO) 0.5 X10'3 (0-0.9); EOSINOPHILS % (AUTO) 4.4 % (0-6); LYMPHOCYTES # (AUTO) 3.5 X10'3 (1.1-4.8); LYMPHOCYTES % (AUTO) 32.6 % (21-51); MEAN CORPUSCULAR HEMOGLOBIN 28.9 PG (27.0-31.0); MEAN CORPUSCULAR HGB CONC 33.2 g/dL (33.0-36.5); MEAN CORPUSCULAR VOLUME 87.3 FL (78-98); MEAN PLATELET VOLUME 8.6 FL (7.4-10.4); MONOCYTES # (AUTO) 0.7 X10'3 (0-0.9); MONOCYTES % (AUTO) 6.7 % (2-12); NEUTROPHILS # (AUTO) 5.9 X10'3 (1.8-7.7); NEUTROPHILS % (AUTO) 55.5 % (42-75); PRE OP HEMATOCRIT 43.6 % (35.0-45.0); PRE OP HEMOGLOBIN 14.5 g/dL (12.0-16.0); PRE OP PLATELET COUNT 346 X10'3 (140-440); RED CELL DISTRIBUTION WIDTH 13.1 % (11.5-14.5)
[2022-09-24 16:03] LABS: ALBUMIN 3.8 G/DL (3.4-5.0); ALKALINE PHOSPHATASE 104 IU/L (46-116); BLOOD UREA NITROGEN 19 MG/DL (7-18); BUN/CREATININE RATIO 24.1 (10.0-20.0); CALCIUM 9.7 MG/DL (8.5-10.1); CHLORIDE 104 MMOL/L (99-107); CREATININE 0.79 MG/DL (0.40-0.90); PRE OP ALT 28 U/L (30-65); PRE OP ANION GAP 9 (8-16); PRE OP AST 22 U/L (10-37); PRE OP BILIRUB, TOTAL 0.3 MG/DL (0.0-1.0); PRE OP GLUCOSE 90 MG/DL (70-104); PRE OP POTASSIUM 3.4 MMOL/L (3.4-5.1); PRE OP SODIUM 141 MMOL/L (135-145); TOTAL PROTEIN 7.7 G/DL (6.4-8.2); eGFR 74 ML/MIN
[2022-09-29] VITALS (20 sets, daily range): BP systolic 92–144; BP diastolic 48–85
[~2022-09-29] VITALS: Ht 162.6 cm; Wt 96.6 kg
[~2022-09-29 05:35] MED LIST changes: -AREDS; -CALCIUM PO; -MILK THISTLE; +OMEP20CA16 PO; -VIT C; -VIT D3; -ZINC PO; +cefazolin 2gm/D5W 100mL 100 ML IV ONE; +famotidine 20mg tablet PO ONE; +ringers solution, lacted 1,000 ML IV SCH; +tranexamic acid 650mg tablet PO ONE; +vancomycin 1,500 MG in NS 300ml IV soln IV ONE; -vit b-12 PO
--- NOTE | 2022-09-29 06:00 | NUR ---
PATIENT WATCHED VIDEO NO OINTMENT ORDERED, CSM INTACT PULSES MARKED
[2022-09-29] MEDS ORDERED: ROPIVAcaine 0.5% (5mg/ml) 30ml vial ONE ×2 (06:42→08:03)
[2022-09-29] MEDS ORDERED: ketorolac trometh. 30mg/ml inj. ONE (06:42)
[2022-09-29] MEDS ORDERED: mineral oil 10ml sterile, topical TP ONE (06:58)
[2022-09-29] MEDS ORDERED: tranexamic acid 100mg/ml inj. ONE (06:58)
[2022-09-29] MEDS ORDERED: tetracaine 1% (10mg/ml) pres. free inj. ONE (07:25)
[2022-09-29] MEDS ORDERED: cloNIDine hcl/PF 100mcg/ml inj ONE (07:25)
[2022-09-29] MEDS ORDERED: fentaNYL/PF 50MCG/1 ML 2ML syringe ONE (07:26)
[2022-09-29] MEDS ORDERED: MIDAZolam 1 MG/ML 5ML VIAL ONE (07:27)
[2022-09-29] MEDS ORDERED: acetaminophen 1,000mg/100ml IV 100 ML IV PRN (08:00)
[2022-09-29] MEDS ORDERED: ondansetron/PF 4mg/2ml inj IV PRN (08:00)
[2022-09-29] MEDS ORDERED: hydrALAZINE 20mg/ml inj. IV PRN (08:00)
[2022-09-29] MEDS ORDERED: fentaNYL/PF 50MCG/1 ML 2ML syringe IV PRN ×2 (08:00)
[2022-09-29] MEDS ORDERED: proCHLORperazine 10 MG/2 ml inj IV PRN (08:00)
[2022-09-29] MEDS ORDERED: HYDROmorphone/PF 0.2 MG/ML SYRINGE IV PRN ×2 (08:00)
[2022-09-29] MEDS ORDERED: labetalol 20mg/4ml (5mg/ml) syringe IV PRN (08:00)
[2022-09-29] MEDS ORDERED: ringers solution, lacted 1,000 ML IV SCH (08:00)
[2022-09-29] MEDS ORDERED: 0.9 % SODIUM CHLORIDE 10 ML VIAL ONE ×2 (08:03)
[2022-09-29] MEDS ORDERED: propofol inj 20 ML IV ONE ×3 (08:03)
[2022-09-29] MEDS ORDERED: dexamethasone sod phosphate 4mg/ml inj. ONE (08:03)
[2022-09-29] MEDS ORDERED: ePHEDrine 50MG/ML INJ. ONE (09:16)
[2022-09-29] MEDS ORDERED: ondansetron/PF 4mg/2ml inj ONE (09:29)
--- NOTE | 2022-09-29 09:58 | NUR ---
Received from OR via , accompanied by Anesthesiologist MOHAN AND OR NURSE and report given by Anesthesiolgist. PT IS AWAKE AND ABLE TO COMMUNICATE REGARDING NO PAIN OR DISCOMFORT. 20G TO RT WRIST. LEFT KNEE WITH ISLAND DRESSING AND PWDR PACK SLING AND ICE; ANKUSH. OANH IN PLACE; PATENT. VSS Addendum: 09/29/22 at 1014 by Rachele Cota RN Amended: Links added.
[2022-09-29] MEDS ORDERED: HYDROmorphone inj. 0.5 MG/0.5 ML DISP.SYRIN IV PRN (10:15)
[2022-09-29] MEDS ORDERED: bisacodyl 10mg suppository rectal RC PRN (10:15)
[2022-09-29] MEDS ORDERED: diphenhydrAMINE 25mg capsule PO PRN ×2 (10:15)
[2022-09-29] MEDS ORDERED: magnesium hydroxide 30ml (MOM) UD suspension PO PRN (10:15)
[2022-09-29] MEDS ORDERED: HYDROmorphone 1 mg/ml syringe IV PRN (10:15)
[2022-09-29] MEDS ORDERED: HYDROcodone/acetaminophen 10/325mg tab PO PRN (10:15)
[2022-09-29] MEDS ORDERED: oxyCODONE IR 5mg (immed. release) tablet PO PRN ×2 (10:15)
[2022-09-29] MEDS ORDERED: naloxone 0.4 mg/ml inj IV PRN (10:15)
[2022-09-29] MEDS ORDERED: acetaminophen 325mg tablet PO PRN (10:15)
--- NOTE | 2022-09-29 11:14 | NUR ---
Patient in room PAS IN 900. I have received report from arlin morrison and had the opportunity to ask questions and assume patient care.
--- NOTE | 2022-09-29 11:28 | NUR ---
PATIENT TAKEN TO ORTHO FLOOR ROOM WITH ALL BELONGINGS AND HOOKED UP TO ALL MONITORS IN ROOM AND REPORT GIVEN TO RN WHO HAS TAKEN OVER PATIENT CARE. Addendum: 09/29/22 at 1144 by Rachele Cota RN Amended: Links added.
[2022-09-29] MEDS: potassium cl 20mEq in 1/2 NS 1,000 ML IV SCH ×3 (12:15→19:39)
[2022-09-29] MEDS: acetaminophen 325mg tablet PO SCH ×2 (14:00→20:27)
[2022-09-29] MEDS: ceFAZolin/D5W- 1GM premix 50 ML IV SCH (15:33)
[2022-09-29] MEDS: HYDROcodone/acetaminophen 10/325mg tab PO PRN ×2 (15:34→19:33)
--- NOTE | 2022-09-29 16:22 | NUR ---
pt is still feeling numb will continue to monitor in order for the Reynolds to be dc post op day 1.
--- NOTE | 2022-09-29 18:35 | NUR ---
Problems reprioritized. Patient report given, questions answered & plan of care reviewed with javier morrison.
[2022-09-29] MEDS ORDERED: vancomycin/NS 1 GM ADD-VANTAGE 250 ML IV SCH (20:00)
[2022-09-29] MEDS: sennosides 8.6mg tablet PO SCH (20:28)
[2022-09-30] MEDS: ceFAZolin/D5W- 1GM premix 50 ML IV SCH (00:19)
[2022-09-30 02:00] VITALS: BP 107/59
[2022-09-30] MEDS: acetaminophen 325mg tablet PO SCH ×4 (02:03→20:25)
[2022-09-30] MEDS: HYDROcodone/acetaminophen 10/325mg tab PO PRN ×2 (02:06→05:53)
--- NOTE | 2022-09-30 05:30 | NUR ---
BLADDER TRAINING DONE Q 4H ALL NIGHT, I DISCONTINUED THE HUGO @ 0530
[2022-09-30 06:00] VITALS: BP 104/59
--- NOTE | 2022-09-30 06:00 | NUR ---
Problems reprioritized. Patient report given, questions answered & plan of care reviewed with IZZY. Addendum: 09/30/22 at 0615 by Art Elizondo RN Amended: Links added.
--- NOTE | 2022-09-30 06:28 | NUR ---
Patient in room ORTHO 4014. I have received report from javier morrison and had the opportunity to ask questions and assume patient care.
[2022-09-30 06:36] LABS: BASOPHILS % (AUTO) 0.2 % (0-1); EOSINOPHILS % (AUTO) 0.4 % (0-6); HEMATOCRIT 33.4 % (35.0-45.0); HEMOGLOBIN 11.1 g/dl (12.0-16.0); LYMPHOCYTES # (AUTO) 2.3 X10'3 (1.1-4.8); LYMPHOCYTES % (AUTO) 16.4 % (21-51); MEAN CORPUSCULAR HEMOGLOBIN 29.1 PG (27.0-31.0); MEAN CORPUSCULAR HGB CONC 33.3 g/dL (33.0-36.5); MEAN CORPUSCULAR VOLUME 87.3 FL (78-98); MEAN PLATELET VOLUME 8.8 FL (7.4-10.4); MONOCYTES # (AUTO) 1.1 X10'3 (0-0.9); MONOCYTES % (AUTO) 8.1 % (2-12); NEUTROPHILS # (AUTO) 10.4 X10'3 (1.8-7.7); NEUTROPHILS % (AUTO) 74.9 % (42-75); PLATELET COUNT 272 X10'3 (140-440); RED BLOOD COUNT 3.82 X10'6 (4.20-5.60); RED CELL DISTRIBUTION WIDTH 12.9 % (11.5-14.5)
[2022-09-30 06:44] LABS: ANION GAP 7 (8-16); CHLORIDE 108 MMOL/L (99-107); POTASSIUM 4.2 MMOL/L (3.5-5.1); SODIUM 140 MMOL/L (135-145); TOTAL CARBON DIOXIDE 25.1 MMOL/L (24-32)
[2022-09-30] MEDS: ondansetron/PF 4mg/2ml inj IV PRN (06:49)
--- NOTE | 2022-09-30 09:14 | NUR ---
Joint surgery consult: Pt s/p L knee surgery this admit per EMR. Pt seen by LISA for written/verbal high protein diet ed w/ RD contact information provided. LISA encouraged pt to contact dietitian's office if further nutrition questions/concerns. Addendum: 09/30/22 at [address] Amended: Links added.
[2022-09-30 10:00] VITALS: BP 103/62
[2022-09-30] MEDS: pantoprazole 40mg Tablet.DR PO SCH (10:23)
[2022-09-30] MEDS: aspirin 325mg tablet PO SCH (10:23)
[2022-09-30] MEDS: proCHLORperazine 10 MG/2 ml inj IV PRN ×2 (10:25→20:28)
[2022-09-30] MEDS: potassium cl 20mEq in 1/2 NS 1,000 ML IV SCH ×2 (13:16→20:32)
[2022-09-30] MEDS: ketorolac tromethamine 15mg/ml inj. IV SCH ×2 (13:30→20:22)
--- NOTE | 2022-09-30 16:57 | NUR ---
per SILVESTRE burnett the pt dressing can be changed tomorrow, unless it gets saturated use 4x4 [address] place under an island dressing
[2022-09-30 18:00] VITALS: BP 114/69
--- NOTE | 2022-09-30 18:45 | NUR ---
Patient in room ORTHO 4014. I have received report from Jay MENDES and had the opportunity to ask questions and assume patient care.
--- NOTE | 2022-09-30 18:47 | NUR ---
Problems reprioritized. Patient report given, questions answered & plan of care reviewed with bucky morrison.
[2022-09-30] MEDS: sennosides 8.6mg tablet PO SCH (20:33)
[2022-09-30 22:00] VITALS: BP 103/60
[2022-10-01] MEDS: acetaminophen 325mg tablet PO SCH ×2 (02:04→13:14)
[2022-10-01] MEDS: ketorolac tromethamine 15mg/ml inj. IV SCH ×4 (02:07→20:07)
[2022-10-01] MEDS: proCHLORperazine 10 MG/2 ml inj IV PRN (02:10)
[2022-10-01] MEDS: potassium cl 20mEq in 1/2 NS 1,000 ML IV SCH ×2 (02:15→04:06)
[2022-10-01 06:00] VITALS: BP 117/63
[2022-10-01 06:47] LABS: BASOPHILS # (AUTO) 0.1 X10'3 (0-0.2); BASOPHILS % (AUTO) 0.5 % (0-1); EOSINOPHILS # (AUTO) 0.2 X10'3 (0-0.9); EOSINOPHILS % (AUTO) 2.2 % (0-6); HEMATOCRIT 33.5 % (35.0-45.0); HEMOGLOBIN 11.3 g/dl (12.0-16.0); LYMPHOCYTES # (AUTO) 2.8 X10'3 (1.1-4.8); LYMPHOCYTES % (AUTO) 25.7 % (21-51); MEAN CORPUSCULAR HEMOGLOBIN 29.4 PG (27.0-31.0); MEAN CORPUSCULAR HGB CONC 33.6 g/dL (33.0-36.5); MEAN CORPUSCULAR VOLUME 87.3 FL (78-98); MEAN PLATELET VOLUME 8.8 FL (7.4-10.4); MONOCYTES # (AUTO) 0.9 X10'3 (0-0.9); MONOCYTES % (AUTO) 8.2 % (2-12); NEUTROPHILS # (AUTO) 6.8 X10'3 (1.8-7.7); NEUTROPHILS % (AUTO) 63.4 % (42-75); PLATELET COUNT 258 X10'3 (140-440); RED BLOOD COUNT 3.84 X10'6 (4.20-5.60); RED CELL DISTRIBUTION WIDTH 13.5 % (11.5-14.5); WHITE BLOOD COUNT 10.8 X10'3 (4.5-11.0)
--- NOTE | 2022-10-01 07:00 | NUR ---
Problems reprioritized. Patient report given, questions answered & plan of care reviewed with Denise MENDES.
[2022-10-01] MEDS: ondansetron/PF 4mg/2ml inj IV PRN (07:57)
[2022-10-01] MEDS: pantoprazole 40mg Tablet.DR PO SCH (07:57)
[2022-10-01 10:00] VITALS: BP 130/70
[2022-10-01] MEDS ORDERED: acetaminophen 325mg tablet PO PRN (10:15)
[2022-10-01] MEDS ORDERED: HYDROcodone/acetaminophen 5mg/325mg tablet PO PRN (10:30)
[2022-10-01] MEDS ORDERED: metoclopramide 5 mg/ml inj IV PRN (10:30)
[2022-10-01] MEDS ORDERED: traMADol 50MG tablet PO PRN (10:30)
[2022-10-01] MEDS: oxyCODONE IR 5mg (immed. release) tablet PO PRN ×2 (13:13→19:12)
[2022-10-01] MEDS: aspirin 325mg tablet PO SCH (13:14)
--- NOTE | 2022-10-01 15:01 | NUR ---
Patient in room ORTHO 4014. I have received report from Denise and had the opportunity to ask questions and assume patient care.
[2022-10-01 18:00] VITALS: BP 138/75
--- NOTE | 2022-10-01 18:08 | NUR ---
Problems reprioritized. Patient report given, questions answered & plan of care reviewed with Shahida.
--- NOTE | 2022-10-01 18:27 | NUR ---
Patient in room ORTHO 4014. I have received report from CINTHYA Perry and had the opportunity to ask questions and assume patient care.
[2022-10-01] MEDS: sennosides 8.6mg tablet PO SCH (20:07)
--- NOTE | 2022-10-01 20:11 | NUR ---
Toradol medication scanned under my name, but administered by Dottie Henning RN in IV route.
--- NOTE | 2022-10-01 20:43 | NUR ---
IV site leaking and tender. Intracath dc'd intact and IV restarted with #18 angio to left hand requiring 1 stick.
[2022-10-01 22:00] VITALS: BP 125/73
[2022-10-02 06:39] LABS: BASOPHILS % (AUTO) 0.3 % (0-1); EOSINOPHILS # (AUTO) 0.2 X10'3 (0-0.9); HEMATOCRIT 34.5 % (35.0-45.0); HEMOGLOBIN 11.8 g/dl (12.0-16.0); LYMPHOCYTES % (AUTO) 19.5 % (21-51); MEAN CORPUSCULAR HEMOGLOBIN 29.5 PG (27.0-31.0); MEAN CORPUSCULAR HGB CONC 34.1 g/dL (33.0-36.5); MEAN CORPUSCULAR VOLUME 86.5 FL (78-98); MEAN PLATELET VOLUME 8.8 FL (7.4-10.4); MONOCYTES # (AUTO) 0.7 X10'3 (0-0.9); MONOCYTES % (AUTO) 7.2 % (2-12); NEUTROPHILS # (AUTO) 7.4 X10'3 (1.8-7.7); PLATELET COUNT 286 X10'3 (140-440); RED BLOOD COUNT 3.99 X10'6 (4.20-5.60); WHITE BLOOD COUNT 10.4 X10'3 (4.5-11.0)
--- NOTE | 2022-10-02 06:43 | NUR ---
Problems reprioritized. Patient report given, questions answered & plan of care reviewed with CINTHYA Carmona.
[2022-10-02 07:00] VITALS: BP 120/75
--- NOTE | 2022-10-02 07:07 | NUR ---
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
--- NOTE | 2022-10-02 09:25 | NUR ---
ROUNDED WITH DR. ALLEN, HE WOULD LIKE PATIENT TO GO HOME ON OXY 5 IR AND A NAUSEA MEDICATION
[2022-10-02] MEDS: pantoprazole 40mg Tablet.DR PO SCH (09:34)
[2022-10-02] MEDS: aspirin 325mg tablet PO SCH (09:34)
[2022-10-02] MEDS: oxyCODONE IR 5mg (immed. release) tablet PO PRN ×2 (09:40→13:43)
[2022-10-02] MEDS ORDERED: lactulose 20gm/30ml cup PO ONE (09:54)
[2022-10-02 10:00] VITALS: BP 124/60
[2022-10-02] MEDS ORDERED: PROM25TA14 PO (12:37)
[2022-10-02] MEDS ORDERED: OXYC-658 PO (12:37)
== END 2022-10-02 15:22 | disposition home or self-care (01) | DRG 326 ==
LOC: PAS IN 05:35 → ORTHO 4S 12:43
PROVIDERS: ADMIT Orthopaedic Surgery; ATTEND Orthopaedic Surgery
PROC: 8E0YXBZ Computer Assisted Procedure of Lower Extremity (ICD-10-PCS; 2022-09-29)
PROC: 8E0Y0CZ Robotic Assisted Procedure of Lower Extremity, Open Approach (ICD-10-PCS; 2022-09-29)
PROC: 0SRD0J9 Replacement of Left Knee Joint with Synthetic Substitute, Cemented, Open Approach (ICD-10-PCS; principal; 2022-09-29 07:24)
DX: M17.12 Unilateral primary osteoarthritis, left knee (principal); M21.162 Varus deformity, not elsewhere classified, left knee; R11.2 Nausea with vomiting, unspecified; R42 Dizziness and giddiness; Z79.899 Other long term (current) drug therapy
CPT/HCPCS: 36415; 80051; 80053; 81003; 82948; 85025; 87081; 97110; 97116; 97161; 97530; A4215; A7000; C1713; C1758; G0378; J0690; J0735; J0780; J1100; J1170; J1885; J2250; J2405; J2704; J2765; J2795; J3010; J3370; J3480; J3490; J7120

== ENCOUNTER 2023-05-07 11:12 | Emergency (ER) | payer MEDICAID ==
[~2023-05-07] VITALS: Ht 162.6 cm; Wt 92.5 kg
[~2023-05-07 11:12] MED LIST changes: +OXYC-658 PO; +PROM25TA14 PO; -cefazolin 2gm/D5W 100mL 100 ML IV ONE; -famotidine 20mg tablet PO ONE; -ringers solution, lacted 1,000 ML IV SCH; -tranexamic acid 650mg tablet PO ONE; -vancomycin 1,500 MG in NS 300ml IV soln IV ONE
[2023-05-07] MEDS ORDERED: acetaminophen 325mg tablet PO ONE (11:25)
[2023-05-07] MEDS ORDERED: ibuprofen tablet 400 MG TABLET PO ONE (11:25)
[2023-05-07] MEDS ORDERED: diphenhydrAMINE 50 mg/ml inj IV ONE (14:25)
[2023-05-07] MEDS ORDERED: metoclopramide 5 mg/ml inj IV ONE (14:25)
[2023-05-07] MEDS ORDERED: magnesium 2GM in 50ml NS 50 ML IV ONE (14:25)
[2023-05-07 16:53] VITALS: BP 114/76; PULSE 84; RESP 18; TEMP 98.5; O2SAT 96
== END 2023-05-07 17:41 | disposition home or self-care (01) ==
LOC: ER 11:12
DX: R51.9 Headache, unspecified (principal); R11.2 Nausea with vomiting, unspecified; E11.9 Type 2 diabetes mellitus without complications; I10 Essential (primary) hypertension; Z88.5 Allergy status to narcotic agent; Z79.899 Other long term (current) drug therapy
CPT/HCPCS: 96365; 96366; 96375; 99284; J1200; J2765; J3475

== ENCOUNTER 2024-01-26 13:52 | Emergency (ER) | payer BC, MEDICAID ==
[~2024-01-26] VITALS: Ht 162.6 cm; Wt 100.5 kg
[2024-01-26 14:09] VITALS: TEMP 98.2
[2024-01-26 14:57] LABS: BASOPHILS # (AUTO) 0.1 X10'3 (0-0.2); EOSINOPHILS # (AUTO) 0.3 X10'3 (0-0.9); EOSINOPHILS % (AUTO) 4.1 % (0-6); HEMATOCRIT 43.4 % (35.0-45.0); HEMOGLOBIN 14.4 g/dl (12.0-16.0); LYMPHOCYTES # (AUTO) 3.1 X10'3 (1.1-4.8); MEAN CORPUSCULAR HEMOGLOBIN 28.9 PG (27.0-31.0); MEAN CORPUSCULAR HGB CONC 33.2 g/dL (33.0-36.5); MEAN CORPUSCULAR VOLUME 86.9 FL (78-98); MEAN PLATELET VOLUME 8.8 FL (7.4-10.4); MONOCYTES # (AUTO) 0.7 X10'3 (0-0.9); MONOCYTES % (AUTO) 8.2 % (2-12); NEUTROPHILS # (AUTO) 3.8 X10'3 (1.8-7.7); NEUTROPHILS % (AUTO) 47.7 % (42-75); PLATELET COUNT 343 X10'3 (140-440); RED CELL DISTRIBUTION WIDTH 14.2 % (11.5-14.5); WHITE BLOOD COUNT 8.1 X10'3 (4.5-11.0)
[2024-01-26 15:06] LABS: ALANINE AMINOTRANSFERASE 28 U/L (12-78); ALBUMIN 3.6 G/DL (3.4-5.0); ALBUMIN/GLOBULIN RATIO 0.9 (1.1-1.5); ALKALINE PHOSPHATASE 71 IU/L (46-116); ANION GAP 9 (8-16); ASPARTATE AMINO TRANSFERASE 21 U/L (10-37); BILIRUBIN,TOTAL 0.3 MG/DL (0.1-1.0); BLOOD UREA NITROGEN 20 MG/DL (7-18); BUN/CREATININE RATIO 24.1 (10.0-20.0); CALCIUM 9.8 MG/DL (8.5-10.1); CHLORIDE 106 MMOL/L (99-107); CREATININE 0.83 MG/DL (0.40-0.90); GLUCOSE 107 MG/DL (70-104); LIPASE 31 U/L (16-77); POTASSIUM 3.8 MMOL/L (3.5-5.1); SODIUM 141 MMOL/L (135-145); TOTAL CARBON DIOXIDE 25.7 MMOL/L (24-32); TOTAL PROTEIN 7.4 G/DL (6.4-8.2); eCRCL 62 ML/MIN; eGFR 70 ML/MIN
[2024-01-26 15:10] LABS: BILIRUBIN,URINE NEGATIVE (Neg); CLARITY,URINE SLIGHTLY CLOUDY (Clear); COLOR,URINE YELLOW (Yellow); GLUCOSE, URINE NEGATIVE (Neg); KETONES,URINE NEGATIVE (Neg); LEUKOCYTE ESTERASE ,URINE NEGATIVE (Neg); NITRITES, URINE NEGATIVE (Neg); OCCULT BLOOD,URINE NEGATIVE (Neg); PH,URINE 6.5 (4.8-8.0); PROTEIN,URINE NEGATIVE (Neg); URINE HCG NEGATIVE (NEG); UROBILINOGEN,URINE 0.2 E.U/dL (0.2-1.0)
[2024-01-26 15:27] LABS: UA COLLECTION TYPE CLN CATCH MIDSTREAM
[2024-01-26 15:28] LABS: CAL OXALATE CRYSTALS 4+ /HPF (NEGATIVE); SQUAMOUS EPITHELIAL CELL,UR FEW /LPF (FEW)
[2024-01-26 15:29] LABS: BACTERIA,URINE NONE SEEN /HPF (Neg); RBC,URINE 0-2 /HPF (0-2); WBC,URINE 0-4 /HPF (0-4)
[2024-01-26 16:43] VITALS: BP 115/78; PULSE 76; RESP 16; O2SAT 96
== END 2024-01-26 16:40 | disposition home or self-care (01) ==
LOC: ER 13:52
DX: R07.89 Other chest pain (principal); I10 Essential (primary) hypertension; E11.9 Type 2 diabetes mellitus without complications; Z88.8 Allergy status to other drugs, medicaments and biological substances; Z79.899 Other long term (current) drug therapy; Z90.49 Acquired absence of other specified parts of digestive tract; Z98.51 Tubal ligation status; Z98.890 Other specified postprocedural states; Z60.2 Problems related to living alone; Z20.822 Contact with and (suspected) exposure to COVID-19
CPT/HCPCS: 36415; 74176; 80053; 81001; 81025; 83690; 85025; 87811; 99284

== ENCOUNTER 2024-03-21 05:35 | Inpatient (IN) | payer BC, OTHER ==
[2024-03-17 15:18] LABS: BASOPHILS # (AUTO) 0.1 X10'3 (0-0.2); BASOPHILS % (AUTO) 0.9 % (0-1); EOSINOPHILS # (AUTO) 0.4 X10'3 (0-0.9); EOSINOPHILS % (AUTO) 3.9 % (0-6); LYMPHOCYTES # (AUTO) 3.1 X10'3 (1.1-4.8); LYMPHOCYTES % (AUTO) 30.9 % (21-51); MEAN CORPUSCULAR HEMOGLOBIN 28.6 PG (27.0-31.0); MEAN CORPUSCULAR HGB CONC 32.9 g/dL (33.0-36.5); MEAN CORPUSCULAR VOLUME 86.9 FL (78-98); MEAN PLATELET VOLUME 8.3 FL (7.4-10.4); MONOCYTES # (AUTO) 0.7 X10'3 (0-0.9); MONOCYTES % (AUTO) 7.2 % (2-12); NEUTROPHILS # (AUTO) 5.8 X10'3 (1.8-7.7); NEUTROPHILS % (AUTO) 57.1 % (42-75); PRE OP HEMATOCRIT 41.7 % (35.0-45.0); PRE OP HEMOGLOBIN 13.7 g/dL (12.0-16.0); PRE OP PLATELET COUNT 329 X10'3 (140-440); PRE OP WHITE BLOOD COUNT 10.1 10'3 (4.8-10.8); RED CELL DISTRIBUTION WIDTH 13.9 % (11.5-14.5)
[2024-03-17 15:38] LABS: ALBUMIN 3.6 G/DL (3.4-5.0); ALBUMIN/GLOBULIN RATIO 0.9 (1.1-1.5); ALKALINE PHOSPHATASE 78 IU/L (46-116); BLOOD UREA NITROGEN 14 MG/DL (7-18); BUN/CREATININE RATIO 16.1 (10.0-20.0); CALCIUM 9.2 MG/DL (8.5-10.1); CHLORIDE 105 MMOL/L (99-107); CREATININE 0.87 MG/DL (0.40-0.90); PRE OP ALT 30 U/L (30-65); PRE OP ANION GAP 7 (8-16); PRE OP AST 22 U/L (10-37); PRE OP BILIRUB, TOTAL 0.3 MG/DL (0.0-1.0); PRE OP GLUCOSE 97 MG/DL (70-104); PRE OP POTASSIUM 3.7 MMOL/L (3.4-5.1); PRE OP SODIUM 137 MMOL/L (135-145); TOTAL CARBON DIOXIDE 25.3 MMOL/L (24-32); TOTAL PROTEIN 7.4 G/DL (6.4-8.2); eGFR 66 ML/MIN
[~2024-03-21] VITALS: Ht 162.6 cm; Wt 98.9 kg
[2024-03-21] VITALS (12 sets, daily range): BP systolic 93–128; BP diastolic 52–82; PULSE 85–100; RESP 14–19; TEMP 97.8–99.1; O2SAT 93–98
[2024-03-21] MEDS: ceFAZolin 2gm in dextrose, iso 50 ML IV ONE (05:30)
[2024-03-21] MEDS: vancomycin 1,500 MG in NS 300ml IV soln IV ONE (05:30)
[~2024-03-21 05:35] MED LIST changes: +FENO160T30 PO; +GABA300C PO; -OMEP20CA16 PO; -OXYC-658 PO; -PROM25TA14 PO
[2024-03-21] MEDS: famotidine 20mg tablet PO ONE (13:08)
[2024-03-21] MEDS: ringers solution, lacted 1,000 ML IV SCH ×2 (13:13→14:15)
[2024-03-21] MEDS: tranexamic acid 650mg tablet PO ONE (14:10)
[2024-03-21] MEDS ORDERED: tetracaine 1% (10mg/ml) pres. free inj. ONE (14:13)
[2024-03-21] MEDS ORDERED: HYDROmorphone/PF 0.2 MG/ML SYRINGE IV PRN ×2 (14:15)
[2024-03-21] MEDS: acetaminophen 1,000mg/100ml IV 100 ML IV ONE (14:15)
[2024-03-21] MEDS ORDERED: labetalol 20mg/4ml (5mg/ml) syringe IV PRN (14:15)
[2024-03-21] MEDS ORDERED: ondansetron/PF 4mg/2ml inj IV PRN (14:15)
[2024-03-21] MEDS ORDERED: hydrALAZINE 20mg/ml inj. IV PRN (14:15)
[2024-03-21] MEDS ORDERED: proCHLORperazine 10 MG/2 ml inj IV PRN (14:15)
[2024-03-21] MEDS ORDERED: fentaNYL/PF 50MCG/1 ML 2ML syringe IV PRN ×2 (14:15)
[2024-03-21] MEDS ORDERED: ROPIVAcaine 0.5% (5mg/ml) 30ml vial ONE (14:21)
[2024-03-21] MEDS ORDERED: ketorolac trometh 30MG/ML vial 30 MG/ML VIAL ONE (14:22)
[2024-03-21] MEDS ORDERED: tranexamic acid 100mg/ml inj. ONE (14:23)
[2024-03-21] MEDS ORDERED: fentaNYL/PF 50MCG/1 ML 2ML syringe ONE (14:54)
[2024-03-21] MEDS ORDERED: midazolam 1 mg/ML 2ml injection ONE (15:02)
[2024-03-21] MEDS ORDERED: HYDROcodone/acetaminophen 10/325mg tab PO PRN (15:25)
[2024-03-21] MEDS ORDERED: acetaminophen 325mg tablet PO PRN (15:25)
[2024-03-21] MEDS ORDERED: naloxone 0.4 mg/ml inj IV PRN (15:25)
[2024-03-21] MEDS: HYDROcodone/acetaminophen 10/325mg tab PO PRN (17:47)
[2024-03-21] MEDS: ondansetron/PF 4mg/2ml inj IV PRN (19:44)
[2024-03-21] MEDS: gabapentin 300mg capsule PO SCH (20:08)
[2024-03-22] VITALS (24 sets, daily range): BP systolic 69–113; BP diastolic 44–71; PULSE 71–105; RESP 13–18; TEMP 96.9–98.7; O2SAT 95–100
[2024-03-22] MEDS: ringers solution, lacted 1,000 ML IV ONE (06:42)
[2024-03-22] MEDS: famotidine 20mg tablet PO ONE (06:42)
[2024-03-22] MEDS ORDERED: ROPIVAcaine 0.5% (5mg/ml) 30ml vial ONE (07:08)
[2024-03-22] MEDS ORDERED: ketorolac trometh 30MG/ML vial 30 MG/ML VIAL ONE (07:08)
[2024-03-22] MEDS ORDERED: BUPIVAcaine 0.5% inj/PF 30 ML ONE (07:18)
[2024-03-22] MEDS ORDERED: BUPIVACAINE liposomal/PF 13.3 MG/ML vial IM ONE (07:18)
[2024-03-22] MEDS ORDERED: tetracaine 1% (10mg/ml) pres. free inj. ONE (07:18)
[2024-03-22] MEDS ORDERED: BUPIVAcaine/PF 2.5mg/ml (0.25%) 10ml vial ONE (07:18)
[2024-03-22] MEDS ORDERED: MIDAZolam 1mg/ml 10ml vial ONE (07:22)
[2024-03-22] MEDS ORDERED: fentaNYL/PF 50MCG/1 ML 2ML syringe ONE (07:22)
[2024-03-22] MEDS: tranexamic acid 650mg tablet PO ONE (07:34)
[2024-03-22] MEDS ORDERED: PHENYLephrine 10mg/ml 5ml injection IV ONE (07:35)
[2024-03-22] MEDS: vancomycin 1,500 MG in NS 300ml IV soln IV ONE (07:37)
[2024-03-22] MEDS: ceFAZolin 2gm in dextrose, iso 50 ML IV ONE (07:37)
[2024-03-22] MEDS: fenofibrate 145mg tablet PO SCH (08:00)
[2024-03-22] MEDS ORDERED: hydrALAZINE 20mg/ml inj. IV PRN (08:35)
[2024-03-22] MEDS ORDERED: HYDROmorphone/PF 0.2 MG/ML SYRINGE IV PRN ×2 (08:35)
[2024-03-22] MEDS ORDERED: ondansetron/PF 4mg/2ml inj IV PRN (08:35)
[2024-03-22] MEDS ORDERED: ringers solution, lacted 1,000 ML IV SCH (08:35)
[2024-03-22] MEDS ORDERED: labetalol 20mg/4ml (5mg/ml) syringe IV PRN (08:35)
[2024-03-22] MEDS ORDERED: fentaNYL/PF 50MCG/1 ML 2ML syringe IV PRN ×2 (08:35)
[2024-03-22] MEDS ORDERED: MIDAZolam 1 MG/ML 5ML VIAL ONE (09:12)
[2024-03-22] MEDS ORDERED: HYDROmorphone 1 mg/ml syringe IV PRN (10:00)
[2024-03-22] MEDS ORDERED: diphenhydrAMINE 25mg capsule PO PRN ×2 (10:00)
[2024-03-22] MEDS ORDERED: naloxone 0.4 mg/ml inj IV PRN (10:00)
[2024-03-22] MEDS: albumin (Human) 5% 250ml 250 ML IV ONE (10:00)
[2024-03-22] MEDS ORDERED: oxyCODONE IR 5mg (immed. release) tablet PO PRN (10:00)
[2024-03-22] MEDS ORDERED: acetaminophen 325mg tablet PO PRN (10:00)
[2024-03-22] MEDS ORDERED: magnesium hydroxide 30ml (MOM) UD suspension PO PRN (10:00)
[2024-03-22 10:33] LABS: APPEARANCE,SYNOVIAL FLUID CLOUDY; COLOR,SYNOVIAL FLUID YELLOW; SYN RBC 1150 /CU MM (0); SYN WBC 11900 /CU MM (0-200)
[2024-03-22 10:34] LABS: LYMPHOCYTES,SYNOVIAL FLUID 5 % (0-75); MONOCYTES,SYNOVIAL FLUID 2 % (0-0); NEUTROPHILS,SYNOVIAL FLUID 93 % (0-25)
[2024-03-22] MEDS: HYDROcodone/acetaminophen 5mg/325mg tablet PO PRN (13:10)
[2024-03-22] MEDS: acetaminophen 325mg tablet PO SCH (14:00)
[2024-03-22] MEDS: HYDROmorphone inj. 0.5 MG/0.5 ML DISP.SYRIN IV PRN (14:26)
[2024-03-22] MEDS: ondansetron/PF 4mg/2ml inj IV PRN (15:14)
[2024-03-22 15:46] LABS: BASOPHILS % (AUTO) 0.3 % (0-1); EOSINOPHILS # (AUTO) 0.3 X10'3 (0-0.9); EOSINOPHILS % (AUTO) 2.5 % (0-6); HEMATOCRIT 32.4 % (35.0-45.0); HEMOGLOBIN 10.7 g/dl (12.0-16.0); LYMPHOCYTES # (AUTO) 2.5 X10'3 (1.1-4.8); LYMPHOCYTES % (AUTO) 21.2 % (21-51); MEAN CORPUSCULAR HEMOGLOBIN 28.8 PG (27.0-31.0); MEAN PLATELET VOLUME 8.7 FL (7.4-10.4); MONOCYTES # (AUTO) 0.7 X10'3 (0-0.9); MONOCYTES % (AUTO) 6.2 % (2-12); NEUTROPHILS # (AUTO) 8.3 X10'3 (1.8-7.7); NEUTROPHILS % (AUTO) 69.8 % (42-75); PLATELET COUNT 279 X10'3 (140-440); RED BLOOD COUNT 3.73 X10'6 (4.20-5.60); RED CELL DISTRIBUTION WIDTH 13.8 % (11.5-14.5)
[2024-03-22] MEDS: ceFAZolin/D5W- 1GM premix 50 ML IV SCH (17:43)
[2024-03-22] MEDS: potassium cl 20mEq in 1/2 NS 1,000 ML IV SCH (18:00)
[2024-03-22] MEDS ORDERED: vancomycin/NS 1 GM ADD-VANTAGE 250 ML IV SCH (20:00)
[2024-03-22] MEDS: sennosides 8.6mg tablet PO SCH (21:28)
[2024-03-22] MEDS: VANCOMYCIN/WATER FOR INJ (PEG) 1.25GM/250 ML IVPB IV SCH (21:28)
[2024-03-23] VITALS (8 sets, daily range): BP systolic 86–113; BP diastolic 52–64; PULSE 84–97; RESP 14–19; TEMP 97.7–99; O2SAT 90–96
[2024-03-23 05:55] LABS: BASOPHILS % (AUTO) 0.2 % (0-1); EOSINOPHILS # (AUTO) 0.2 X10'3 (0-0.9); EOSINOPHILS % (AUTO) 1.5 % (0-6); HEMATOCRIT 32.4 % (35.0-45.0); HEMOGLOBIN 10.9 g/dl (12.0-16.0); LYMPHOCYTES # (AUTO) 1.5 X10'3 (1.1-4.8); LYMPHOCYTES % (AUTO) 14.1 % (21-51); MEAN CORPUSCULAR HEMOGLOBIN 29.3 PG (27.0-31.0); MEAN CORPUSCULAR HGB CONC 33.6 g/dL (33.0-36.5); MEAN CORPUSCULAR VOLUME 87.1 FL (78-98); MEAN PLATELET VOLUME 8.7 FL (7.4-10.4); MONOCYTES # (AUTO) 0.8 X10'3 (0-0.9); MONOCYTES % (AUTO) 7.6 % (2-12); NEUTROPHILS # (AUTO) 7.9 X10'3 (1.8-7.7); NEUTROPHILS % (AUTO) 76.6 % (42-75); PLATELET COUNT 283 X10'3 (140-440); RED BLOOD COUNT 3.71 X10'6 (4.20-5.60); RED CELL DISTRIBUTION WIDTH 13.9 % (11.5-14.5); WHITE BLOOD COUNT 10.3 X10'3 (4.5-11.0)
[2024-03-23] MEDS: HYDROmorphone inj. 0.5 MG/0.5 ML DISP.SYRIN IV PRN (05:57)
[2024-03-23 06:20] LABS: ANION GAP 7 (8-16); CHLORIDE 106 MMOL/L (99-107); POTASSIUM 4.1 MMOL/L (3.5-5.1); SODIUM 137 MMOL/L (135-145); TOTAL CARBON DIOXIDE 23.7 MMOL/L (24-32)
[2024-03-23] MEDS ORDERED: VANCOMYCIN 1GM 200ML H20 (PEG) 200 ML IV ONE (08:00)
[2024-03-23] MEDS ORDERED: HYDROmorphone/PF 0.2 MG/ML SYRINGE IV PRN (08:40)
[2024-03-23] MEDS: normal saline 1000ml 1,000 ML IV ONE (09:01)
[2024-03-23] MEDS: aspirin 325mg tablet PO SCH (09:02)
[2024-03-23] MEDS: ketorolac trometh 15mg/ml vial 15 MG/ML ML IV SCH (09:04)
[2024-03-23 10:24] LABS: ALANINE AMINOTRANSFERASE 40 U/L (12-78); ALBUMIN 2.9 G/DL (3.4-5.0); ALKALINE PHOSPHATASE 56 IU/L (46-116); ASPARTATE AMINO TRANSFERASE 36 U/L (10-37); BILIRUBIN,TOTAL 0.2 MG/DL (0.1-1.0); BLOOD UREA NITROGEN 8 MG/DL (7-18); BUN/CREATININE RATIO 8.5 (10.0-20.0); CALCIUM 8.5 MG/DL (8.5-10.1); CREATININE 0.94 MG/DL (0.40-0.90); GLUCOSE 136 MG/DL (70-104); TOTAL PROTEIN 5.8 G/DL (6.4-8.2); eCRCL 55 ML/MIN; eGFR 61 ML/MIN
[2024-03-23] MEDS: celeCOXIB 100mg capsule PO SCH (20:00)
[2024-03-23] MEDS: ketorolac trometh 15mg/ml vial 15 MG/ML ML IV PRN (20:57)
[2024-03-23] MEDS: VANCOMYCIN LEVEL IV ONE (21:11)
[2024-03-23] MEDS: VANCOMYCIN/WATER FOR INJ (PEG) 1.25GM/250 ML IVPB IV SCH (21:14)
[2024-03-24 05:58] LABS: BASOPHILS % (AUTO) 0.4 % (0-1); EOSINOPHILS # (AUTO) 0.3 X10'3 (0-0.9); EOSINOPHILS % (AUTO) 3.3 % (0-6); HEMATOCRIT 29.5 % (35.0-45.0); HEMOGLOBIN 9.9 g/dl (12.0-16.0); LYMPHOCYTES % (AUTO) 19.6 % (21-51); MEAN CORPUSCULAR HEMOGLOBIN 29.4 PG (27.0-31.0); MEAN CORPUSCULAR HGB CONC 33.5 g/dL (33.0-36.5); MEAN CORPUSCULAR VOLUME 87.7 FL (78-98); MONOCYTES % (AUTO) 9.6 % (2-12); NEUTROPHILS # (AUTO) 6.8 X10'3 (1.8-7.7); NEUTROPHILS % (AUTO) 67.1 % (42-75); PLATELET COUNT 252 X10'3 (140-440); RED BLOOD COUNT 3.36 X10'6 (4.20-5.60); WHITE BLOOD COUNT 10.2 X10'3 (4.5-11.0)
[2024-03-24 06:00] VITALS: BP 100/54; PULSE 55; RESP 14; TEMP 97.9; O2SAT 93
[2024-03-24 06:18] LABS: ALANINE AMINOTRANSFERASE 26 U/L (12-78); ALBUMIN 2.6 G/DL (3.4-5.0); ALBUMIN/GLOBULIN RATIO 0.8 (1.1-1.5); ALKALINE PHOSPHATASE 52 IU/L (46-116); ANION GAP 5 (8-16); ASPARTATE AMINO TRANSFERASE 24 U/L (10-37); BILIRUBIN,TOTAL 0.2 MG/DL (0.1-1.0); BLOOD UREA NITROGEN 8 MG/DL (7-18); BUN/CREATININE RATIO 9.3 (10.0-20.0); CALCIUM 8.1 MG/DL (8.5-10.1); CHLORIDE 108 MMOL/L (99-107); CREATININE 0.86 MG/DL (0.40-0.90); GLUCOSE 122 MG/DL (70-104); SODIUM 137 MMOL/L (135-145); TOTAL CARBON DIOXIDE 24.5 MMOL/L (24-32); TOTAL PROTEIN 5.7 G/DL (6.4-8.2); eCRCL 60 ML/MIN; eGFR 67 ML/MIN
[2024-03-24 08:00] VITALS: RESP 14; O2SAT 93
[2024-03-24 10:00] VITALS: BP 93/48; PULSE 75; RESP 16; TEMP 97; O2SAT 93
[2024-03-24] MEDS ORDERED: acetaminophen 325mg tablet PO PRN (10:00)
[2024-03-24] MEDS: VANCOMYCIN/WATER FOR INJ (PEG) 1.5GM/300 ML IVPB IV SCH (10:05)
[2024-03-24 18:00] VITALS: BP 115/55; PULSE 97; RESP 16; TEMP 96.8; O2SAT 96
[2024-03-24 22:00] VITALS: BP 105/53; PULSE 107; RESP 15; TEMP 98.3; O2SAT 94
[2024-03-25 06:00] VITALS: BP_SYST 148; BP_SYST 179; BP_DIAS 62; BP_DIAS 64; PULSE 110; RESP 23; TEMP 98.3; O2SAT 100
[2024-03-25 07:17] LABS: BASOPHILS % (AUTO) 0.5 % (0-1); EOSINOPHILS # (AUTO) 0.4 X10'3 (0-0.9); RED CELL DISTRIBUTION WIDTH 13.7 % (11.5-14.5)
[2024-03-25 07:21] LABS: EOSINOPHILS % (AUTO) 4.4 % (0-6); HEMATOCRIT 27.8 % (35.0-45.0); HEMOGLOBIN 9.4 g/dl (12.0-16.0); LYMPHOCYTES # (AUTO) 2.1 X10'3 (1.1-4.8); LYMPHOCYTES % (AUTO) 24.4 % (21-51); MEAN CORPUSCULAR HEMOGLOBIN 29.4 PG (27.0-31.0); MEAN CORPUSCULAR HGB CONC 33.8 g/dL (33.0-36.5); MEAN CORPUSCULAR VOLUME 86.8 FL (78-98); MONOCYTES # (AUTO) 0.7 X10'3 (0-0.9); MONOCYTES % (AUTO) 8.4 % (2-12); NEUTROPHILS # (AUTO) 5.4 X10'3 (1.8-7.7); NEUTROPHILS % (AUTO) 62.3 % (42-75); PLATELET COUNT 260 X10'3 (140-440); RED BLOOD COUNT 3.21 X10'6 (4.20-5.60); WHITE BLOOD COUNT 8.7 X10'3 (4.5-11.0)
[2024-03-25 08:17] LABS: ALANINE AMINOTRANSFERASE 23 U/L (12-78); ALBUMIN 2.5 G/DL (3.4-5.0); ALBUMIN/GLOBULIN RATIO 0.7 (1.1-1.5); ALKALINE PHOSPHATASE 52 IU/L (46-116); ANION GAP 4 (8-16); ASPARTATE AMINO TRANSFERASE 15 U/L (10-37); BILIRUBIN,TOTAL 0.3 MG/DL (0.1-1.0); BLOOD UREA NITROGEN 7 MG/DL (7-18); BUN/CREATININE RATIO 7.4 (10.0-20.0); CALCIUM 8.4 MG/DL (8.5-10.1); CHLORIDE 104 MMOL/L (99-107); CREATININE 0.95 MG/DL (0.40-0.90); GLUCOSE 141 MG/DL (70-104); SODIUM 135 MMOL/L (135-145); TOTAL PROTEIN 6.1 G/DL (6.4-8.2); eCRCL 54 ML/MIN; eGFR 60 ML/MIN
[2024-03-25] MEDS: magnesium hydroxide 30ml (MOM) UD suspension PO PRN (09:42)
[2024-03-25 10:00] VITALS: BP 150/51; PULSE 89; RESP 15; TEMP 97.7; O2SAT 99
[2024-03-25 11:00] VITALS: O2SAT 97
[2024-03-25] MEDS: bisacodyl 10mg suppository rectal RC PRN (14:59)
[2024-03-25 18:00] VITALS: BP 108/57; PULSE 80; RESP 14; TEMP 98.9; O2SAT 98
[2024-03-25 20:00] VITALS: RESP 14; O2SAT 98
[2024-03-25] MEDS: VANCOMYCIN LEVEL IV ONE (20:13)
[2024-03-25 22:00] VITALS: BP 98/50; PULSE 91; RESP 18; TEMP 89.9; O2SAT 18
[2024-03-26 06:00] VITALS: BP 104/57; PULSE 81; RESP 18; TEMP 97.6; O2SAT 95
[2024-03-26 06:32] LABS: ALANINE AMINOTRANSFERASE 16 U/L (12-78); ALBUMIN 2.5 G/DL (3.4-5.0); ALBUMIN/GLOBULIN RATIO 0.7 (1.1-1.5); ALKALINE PHOSPHATASE 57 IU/L (46-116); ANION GAP 6 (8-16); ASPARTATE AMINO TRANSFERASE 11 U/L (10-37); BILIRUBIN,TOTAL 0.3 MG/DL (0.1-1.0); BLOOD UREA NITROGEN 11 MG/DL (7-18); BUN/CREATININE RATIO 12.1 (10.0-20.0); CALCIUM 8.7 MG/DL (8.5-10.1); CHLORIDE 108 MMOL/L (99-107); CREATININE 0.91 MG/DL (0.40-0.90); GLUCOSE 103 MG/DL (70-104); SODIUM 140 MMOL/L (135-145); TOTAL CARBON DIOXIDE 25.7 MMOL/L (24-32); TOTAL PROTEIN 6.2 G/DL (6.4-8.2); eCRCL 57 ML/MIN; eGFR 63 ML/MIN
[2024-03-26 08:00] VITALS: RESP 14; O2SAT 98
[2024-03-26 10:00] VITALS: BP 109/53; PULSE 91; RESP 18; TEMP 98.4; O2SAT 95
[2024-03-26 18:00] VITALS: BP 102/55; PULSE 94; RESP 18; TEMP 97.8; O2SAT 96
[2024-03-26 20:00] VITALS: RESP 18; O2SAT 96
[2024-03-26 22:00] VITALS: BP 100/55; PULSE 86; RESP 18; TEMP 98.6; O2SAT 94
[2024-03-27 06:00] VITALS: BP 112/66; PULSE 78; RESP 22; TEMP 97.5; O2SAT 98
[2024-03-27 06:54] LABS: ALANINE AMINOTRANSFERASE 21 U/L (12-78); ALBUMIN 2.6 G/DL (3.4-5.0); ALBUMIN/GLOBULIN RATIO 0.7 (1.1-1.5); ALKALINE PHOSPHATASE 56 IU/L (46-116); ANION GAP 7 (8-16); ASPARTATE AMINO TRANSFERASE 13 U/L (10-37); BILIRUBIN,TOTAL 0.3 MG/DL (0.1-1.0); BLOOD UREA NITROGEN 15 MG/DL (7-18); CALCIUM 9.1 MG/DL (8.5-10.1); CHLORIDE 107 MMOL/L (99-107); CREATININE 0.94 MG/DL (0.40-0.90); GLUCOSE 109 MG/DL (70-104); POTASSIUM 4.1 MMOL/L (3.5-5.1); SODIUM 141 MMOL/L (135-145); TOTAL CARBON DIOXIDE 27.3 MMOL/L (24-32); TOTAL PROTEIN 6.6 G/DL (6.4-8.2); eCRCL 55 ML/MIN; eGFR 61 ML/MIN
[2024-03-27 07:47] VITALS: RESP 18
[2024-03-27 10:30] VITALS: BP 112/60; PULSE 101; RESP 18; TEMP 97.7; O2SAT 97
[2024-03-27 19:10] VITALS: BP 106/62; PULSE 86; RESP 16; TEMP 97.8; O2SAT 95
[2024-03-27 22:00] VITALS: BP_SYST 90; BP_SYST 96; BP_DIAS 43; BP_DIAS 50; PULSE 92; RESP 18; TEMP 98.8; O2SAT 95
[2024-03-28 06:00] VITALS: BP 104/40; PULSE 88; RESP 22; TEMP 98.1; O2SAT 97
[2024-03-28 08:40] VITALS: RESP 18
[2024-03-28 10:30] VITALS: BP 116/69; PULSE 92; RESP 18; TEMP 98; O2SAT 94
[2024-03-28] MEDS: ringers solution, lacted 1,000 ML IV ONE (14:20)
[2024-03-28] MEDS ORDERED: glucagon, human recombinant 1mg kit SUBCUT PRN (14:20)
[2024-03-28] MEDS ORDERED: dextrose 50%-water 50ml dispensing syringe IV PRN ×2 (14:20)
[2024-03-28] MEDS ORDERED: DEXTROSE 15 GM of carb/4 tabs (each vial/BOTTLE has 4 tablets) PO PRN ×2 (14:20)
[2024-03-28 15:09] LABS: C-REACTIVE PROTEIN 4.87 MG/DL (0.0-0.5); MAGNESIUM 2.4 MG/DL (1.5-2.4); PHOSPHORUS 4.4 MG/DL (2.3-4.5); THYROID STIMULATING HORMONE 1.75 ulU/ml (0.34-4.50)
[2024-03-28] MEDS: INSULIN LISPRO 100 UNIT/ML INSULN.PEN MULTI-DOSE SQ SCH (17:00)
[2024-03-28 18:00] VITALS: BP 115/58; PULSE 103; RESP 16; TEMP 97.8; O2SAT 96
[2024-03-28 20:00] VITALS: RESP 16; O2SAT 94
[2024-03-28] MEDS: insulin glargine (Lantus) pen - multi-dose SQ SCH (21:00)
[2024-03-28] MEDS: ketorolac trometh 15mg/ml vial 15 MG/ML ML IV SCH (21:42)
[2024-03-28 22:00] VITALS: BP 109/61; PULSE 97; RESP 16; TEMP 98.1; O2SAT 96
[2024-03-29 06:00] VITALS: BP 95/54; PULSE 81; RESP 16; TEMP 98.2; O2SAT 95
[2024-03-29 08:00] VITALS: RESP 14; O2SAT 97
[2024-03-29 08:52] LABS: BASOPHILS % (AUTO) 0.5 % (0-1); EOSINOPHILS # (AUTO) 0.6 X10'3 (0-0.9); EOSINOPHILS % (AUTO) 8.5 % (0-6); HEMATOCRIT 30.1 % (35.0-45.0); LYMPHOCYTES # (AUTO) 1.6 X10'3 (1.1-4.8); LYMPHOCYTES % (AUTO) 23.8 % (21-51); MEAN CORPUSCULAR HEMOGLOBIN 28.6 PG (27.0-31.0); MEAN CORPUSCULAR VOLUME 86.5 FL (78-98); MEAN PLATELET VOLUME 7.5 FL (7.4-10.4); MONOCYTES # (AUTO) 0.5 X10'3 (0-0.9); MONOCYTES % (AUTO) 6.8 % (2-12); NEUTROPHILS # (AUTO) 4.2 X10'3 (1.8-7.7); NEUTROPHILS % (AUTO) 60.4 % (42-75); PLATELET COUNT 368 X10'3 (140-440); RED BLOOD COUNT 3.48 X10'6 (4.20-5.60); RED CELL DISTRIBUTION WIDTH 13.9 % (11.5-14.5); WHITE BLOOD COUNT 6.9 X10'3 (4.5-11.0)
[2024-03-29 10:00] VITALS: BP 99/56; PULSE 91; RESP 14; TEMP 97.8; O2SAT 97
[2024-03-29] MEDS: pantoprazole 40mg Tablet.DR PO SCH (12:06)
[2024-03-29 14:21] VITALS: RESP 20
== END 2024-03-29 14:29 | DRG 466 ==
LOC: PAS IN 11:55 → ORTHO 4S 17:36
PROVIDERS: ADMIT Orthopaedic Surgery; ATTEND Orthopaedic Surgery
PROC: 3E0T3BZ Introduction of Anesthetic Agent into Peripheral Nerves and Plexi, Percutaneous Approach (ICD-10-PCS; 2024-03-22)
PROC: 0SPD0JZ Removal of Synthetic Substitute from Left Knee Joint, Open Approach (ICD-10-PCS; 2024-03-22)
PROC: 0SRD0J9 Replacement of Left Knee Joint with Synthetic Substitute, Cemented, Open Approach (ICD-10-PCS; 2024-03-22)
PROC: 3E0U029 Introduction of Other Anti-infective into Joints, Open Approach (ICD-10-PCS; 2024-03-22)
PROC: 3E0T3BZ Introduction of Anesthetic Agent into Peripheral Nerves and Plexi, Percutaneous Approach (ICD-10-PCS; 2024-03-22)
PROC: 02HV33Z Insertion of Infusion Device into Superior Vena Cava, Percutaneous Approach (ICD-10-PCS; principal; 2024-03-25)
DX: T84.54XA Infection and inflammatory reaction due to internal left knee prosthesis, initial encounter (principal); A41.9 Sepsis, unspecified organism; Z96.652 Presence of left artificial knee joint; E11.9 Type 2 diabetes mellitus without complications; E66.9 Obesity, unspecified; E78.5 Hyperlipidemia, unspecified; E88.09 Other disorders of plasma-protein metabolism, not elsewhere classified; G89.4 Chronic pain syndrome; J44.9 Chronic obstructive pulmonary disease, unspecified; I10 Essential (primary) hypertension; X58.XXXA Exposure to other specified factors, initial encounter; Y83.8 Other surgical procedures as the cause of abnormal reaction of the patient, or of later complication, without mention of misadventure at the time of the procedure; Y92.89 Other specified places as the place of occurrence of the external cause; Z68.37 Body mass index [BMI] 37.0-37.9, adult; Z90.49 Acquired absence of other specified parts of digestive tract; Z88.1 Allergy status to other antibiotic agents; Z87.891 Personal history of nicotine dependence; Z88.5 Allergy status to narcotic agent; Z88.8 Allergy status to other drugs, medicaments and biological substances
CPT/HCPCS: 36569; Z7506; Z7508; 36415; 71046; 76942; 80053; 80202; 82948; 83036; 83605; 83615; 83735; 84100; 84443; 84484; 85025; 85651; 86140; 87070; 87075; 87081; 89051; 97110; 97116; 97161; 97530; A4618; A6258; A6446; A6449; A7000; C1713; C1751; C1776; C9290; G0378; J0690; J1171; J1815; J1885; J2250; J2371; J2405; J2795; J3010; J3372; J3480; J3490; J7030; J7040; J7120; P9045

== ENCOUNTER 2024-04-26 17:21 | Outpatient (CLI) | payer BC, OTHER ==
[2024-04-26 18:04] LABS: BASOPHILS % (AUTO) 1.2 % (0-1); EOSINOPHILS # (AUTO) 0.3 X10'3 (0-0.9); HEMATOCRIT 32.9 % (35.0-45.0); HEMOGLOBIN 10.8 g/dl (12.0-16.0); LYMPHOCYTES # (AUTO) 1.1 X10'3 (1.1-4.8); LYMPHOCYTES % (AUTO) 29.2 % (21-51); MEAN CORPUSCULAR HGB CONC 32.9 g/dL (33.0-36.5); MEAN CORPUSCULAR VOLUME 85.1 FL (78-98); MEAN PLATELET VOLUME 8.9 FL (7.4-10.4); MONOCYTES # (AUTO) 0.4 X10'3 (0-0.9); MONOCYTES % (AUTO) 9.9 % (2-12); NEUTROPHILS % (AUTO) 50.7 % (42-75); PLATELET COUNT 331 X10'3 (140-440); RED BLOOD COUNT 3.86 X10'6 (4.20-5.60); RED CELL DISTRIBUTION WIDTH 14.8 % (11.5-14.5); WHITE BLOOD COUNT 3.9 X10'3 (4.5-11.0)
[2024-04-26 18:12] LABS: ALBUMIN 3.3 G/DL (3.4-5.0); ANION GAP 9 (8-16); BLOOD UREA NITROGEN 11 MG/DL (7-18); BUN/CREATININE RATIO 13.4 (10.0-20.0); CALCIUM 8.3 MG/DL (8.5-10.1); CHLORIDE 106 MMOL/L (99-107); CREATININE 0.82 MG/DL (0.40-0.90); GLUCOSE 112 MG/DL (70-104); POTASSIUM 4.3 MMOL/L (3.5-5.1); SODIUM 142 MMOL/L (135-145); eGFR 71 ML/MIN
[2024-04-26 18:22] LABS: VANCOMYCIN,RANDOM 24.9 ug/mL (20.0-30.0)
== END 2024-04-26 23:59 | disposition home or self-care (01) ==
LOC: LAB SPEC 17:21
PROVIDERS: ATTEND Internal Medicine
DX: T84.54XD Infection and inflammatory reaction due to internal left knee prosthesis, subsequent encounter (principal); X58.XXXD Exposure to other specified factors, subsequent encounter
CPT/HCPCS: 36415; 80048; 80202; 85025